=== PATIENT | female | born 1995 | race Caucasian/White ===

== ENCOUNTER 2020-06-21 07:00 | Outpatient (CLI) | payer OTHER | END 2020-06-21 23:59 | disposition home or self-care (01) | LOC: LAB.R 07:00 | PROVIDERS: ATTEND Nurse Practitioner Obstetrics & Gynecology | DX: Z36.85 Encounter for antenatal screening for Streptococcus B (principal) | CPT/HCPCS: 87797 ==

== ENCOUNTER 2020-06-28 08:59 | Outpatient (CLI) | payer OTHER ==
[2020-06-28 09:16] LABS: HGB - HEMOGLOBIN 10.6 g/dL (12.0-16.0); MEAN CORPUSCULAR HEMOGLOBIN 28.3 pg (27.0-31.0); MEAN CORPUSCULAR HGB CONC 32.6 g/dL (32.0-36.0); MEAN CORPUSCULAR VOLUME 86.7 fL (81.0-99.0); MEAN PLATELET VOLUME 9.7 fL (7.9-10.8); RED BLOOD COUNT 3.75 10^6/uL (4.20-5.40); RED CELL DISTRIBUTION WIDTH 13.4 % (12.0-15.0); WHITE BLOOD COUNT 11.4 x10^3/uL (4.8-10.8)
[2020-06-28 09:29] LABS: ALBUMIN 2.8 g/dL (3.2-5.5); ALBUMIN/GLOBULIN RATIO 0.7 (1.0-2.2); BILIRUBIN,TOTAL 0.4 mg/dL (0.2-1.0); CALCIUM 9.7 mg/dL (8.5-10.3); CREATININE 0.5 mg/dL (0.4-1.0); TOTAL PROTEIN 6.9 g/dL (6.7-8.2)
[2020-06-28 09:33] LABS: CREATININE,URINE 92.3 mg/dL; MICROALBUM/CREATININE RATIO,UR 8.7 ug/mg (<30.0); MICROALBUMIN,URINE 0.8 mg/dL (0-300.0)
== END 2020-06-28 09:00 | disposition home or self-care (01) ==
LOC: LAB 08:59
PROVIDERS: ATTEND Nurse Practitioner Obstetrics & Gynecology
DX: R03.0 Elevated blood-pressure reading, without diagnosis of hypertension (principal)
CPT/HCPCS: 36415; 80053; 82043; 82570; 84550; 85027

== ENCOUNTER 2020-06-28 14:00 | Observation (INO) | payer OTHER ==
[2020-06-28] MEDS ORDERED: SODIUM CHLORIDE FLUSH 0.9% 10 ML SYRINGE IVP PRN (14:12)
[2020-06-28] MEDS ORDERED: diphenhydrAMINE 25 MG CAPSULE PO PRN (15:36)
[2020-06-28] MEDS ORDERED: ACETAMINOPHEN 500 MG TABLET PO PRN (15:37)
[2020-06-28] MEDS ORDERED: ONDANSETRON 4 MG/2 ML VIAL IVP PRN (15:37)
[2020-06-28] MEDS ORDERED: ONDANSETRON ODT 4 MG TABLET TL PRN (15:37)
--- NOTE | 2020-06-28 15:38 | HISTORY & PHYSICAL EXAMINATION ---
Admit History - Visit Reason Visit Reason: Other (Pre-induction Cervical Ripening for complicated by Preeclampsia) - : 1 Parity: 0 Premature: 0 Ectopic: 0 : 0 Care: positive: LUX-Tien Garcia ([facility] after transfer from [facility] at) - Other Maternal History Other Maternal History: -25yo at 38.1wks gestation who presents to Labor and Delivery for pre- induction cervical ripening related to development of Preeclampsia as evidenced by out of range BPs in clinic and a positive urine protein/creatinine ratio -Reports movement -Denies ctx/VB/LOF - care with [facility] x2 visits after transfer of care from [facility] at 37.1wks where care has been adequate - Complications *Suspected LGA fetus (US 04/06/2020 showed EFW at 90%) *Maternal Obesity (BMI 44.9) *Elevated BPs without history of HTN -06/28/2020 Protein/Creatinine Ratio: 8.7 -Dating Criteria *11.1wk US c/w LMP -OB Hx *G1: current -Medications * vitamin-daily -Allergies *NKDA *Pineapple (critical) -Medical History *Hx Abnormal Pap Smear (see findings below) -Surgical History *Breast Lumpectomy (2009) *Otoplasty (2001) -Family History *Non contributory -Social History *Non contributory - Labs, Immunizations, and Findings *Initial U/S: @ 11.1wks c/w LMP dating. *O pos/Rubella immune *VZV: immune *Genetic testing: CF neg; serum integrated screen - negative *FAS: 02/22/2020 WNL with the exception of poor visualization of cardiac structures. Posterior placenta, no previa. 3VC. EFW 94th percentile. *02/24/2020 f/u heart - WNL. *04/06/2020 f/u growth, LGA fetus: EFW 1106, 90th%tile. ARISTEO 20cm. *Glucola: 86 *Influenza: 12/2019 *TDAP : 04/20/2020 *GBS negative *HSV: denies self and partner *Breast pump Rx has *MOD: Anticipate ; It's a BOY! - Stewart; Irwin; Epidural; *pp contraception: POPs to Nuvaring when appropriate *pap: 12/28/2019 LSIL-colposcopy without biopsy 01/18/2020; visually consistent with GRACIELA-1. Pt was given recommendation to repeat pap in 1 year. -SVE - deferred at this time -Vertex by BSUS -EFW by deepak'bryon: 8-8.5# -FHTs as above -Assessment *Restate STATUS *Requires cervical ripening * Heart Tones- Category I -Plan *Admit to OBS(until active labor, SROM, AROM, epidural, or pitocin) *Cervical ripening with Misoprostol *Monitoring- Continuous *Comfort measures available- position changes, whirlpool tub, fentanyl, and epidural per maternal preference *Diet/Activity- per maternal preference *Anticipate -Family History *Non contributory -Social History *Non contributory - Labs, Immunizations, and Findings *PN blurb goes here -SVE -Vertex by BSUS -EFW by fidelina -FHTs as above -Assessment *25yo at 38.1wks gestation who presents to Labor and Delivery for pre- induction cervical ripening related to development of Preeclampsia as evidenced by out of range BPs in clinic and a positive urine protein/creatinine ratio *Cabral Score *- requires cervical ripening * Heart Tones- Category I -Plan *Admit to OBS(until active labor, SROM, AROM, epidural, or pitocin) *COVID swab- per unit protocol- URGENT *Monitoring- Continuous *BPs Q1H if within normal range *CBC Q8H while in labor *Comfort measures available- position changes, whirlpool tub, fentanyl, and epidural per maternal preference *Diet/Activity- per maternal preference *Anticipate Review of Systems - Eyes Eyes: denies: Blurred vision, Spots in vision - Cardiovascular Cariovascular: denies: Chest pain, Edema - Respiratory Respiratory: denies: SOB at rest - Gastrointestinal Gastrointestinal: denies: Abdominal pain, Nausea, Vomiting - Neurological Neurological: denies: General weakness, Headache - All Other Systems All Other Systems: reports: Reviewed and negative Physical - Abdominal Exam Contraction Frequency (min/apart): None Uterine Resting Tone: positive: Soft - Monitoring Heart Rate Baseline: 125 Strip Review: positive: Category I (accels, no decels, moderate variability) - Presentation Presentation: positive: Vertex (by BSUS) - Vaginal Exam Membranes: positive: Membranes intact Plan for Labor - Plan For Labor I expect patient to be DC'd or transferred within 96 hours.: Yes
[2020-06-28] MEDS ORDERED: miSOPROStoL 100 MCG TABLET BC SCH (16:00)
[2020-06-28] MEDS ORDERED: SODIUM CHLORIDE FLUSH 0.9% 10 ML SYRINGE IVP SCH (17:00)
[2020-06-28 20:26] LABS: CREATININE,URINE 182.1 mg/dL; PROTEIN/CREATININE RATIO,URINE 0.1 (<=0.2)
--- NOTE | 2020-06-28 20:52 | DISCHARGE SUMMARY ---
Discharge Summary Admit Date: 06/28/20 Discharge Date: 06/28/20 Discharging Provider: Taylor Talavera CNM Condition at Discharge: Good Discharge Disposition: 01 Home, Self Care - DIAGNOSES Admission Diagnoses: 25yo at 38.1wks gestation who presents to Labor and Delivery for pre- induction cervical ripening related to development of Preeclampsia as evidenced by out of range BPs in clinic and a positive urine protein/creatinine ratio - Complications *Suspected LGA fetus (US 04/06/2020 showed EFW at 90%) *Maternal Obesity (BMI 44.9) *Elevated BPs without history of HTN - HPI History of Present Illness: Jessica presented for IOL for suspected preeclampsia as evidenced by elevated BPs in clinic and an outpatient out of range urine lab. BPs 110-130s/60s-70s Denies BERMUDEZ, visual changes No RUQ pain Mild dependent edema in bilateral feet, +1 DTRs +1 bilaterally/ negative for clonus Plts 391 Hct 32.5% AST 19/ ALT 12 Outpatient microalbumin/creatinine ratio 8.7 *This is a normal level and was interpreted as an out of range protein/creatinine ratio, which is the typical test collected to rule out preeclampsia Upon further inspection inpatient, a protein/creatinine ratio was collected and found to be 0.1, which is within normal range FHTs 130s, accels, no decels, moderate variability Misoprostol x1 given >4 hours prior Thorough discussion with patient and partner about labs, risks/benefits of discharge home versus continuing with induction, preeclampsia symptoms, and plan of care moving forward. They would like to discharge to home. Assessment: 25yo at 38.1wks gestation Preeclampsia labs are wnl BPs are wnl FHT Cat I Appropriate for discharge home. Diagnosis: Elevated BP without hypertension Plan: Discharge to home now BPs daily, call for out of range (140/90) Call for symptoms of preeclampsia Follow up in office for BP check on Follow up weekly for routine care. - PHYSICAL EXAM AT DISCHARGE General Appearance: positive: No acute distress Eyes Bilateral: positive: Normal inspection ENT: positive: ENT inspection nml Neck: positive: Nml inspection Respiratory: positive: Breath sounds nml Cardiovascular: positive: Regular rate & rhythm, No murmur Abdomen: positive: Non-tender (gravid) Skin: positive: Color nml, Warm, Dry Extremities: positive: Non-tender, Full ROM Neurologic/Psychiatric: positive: Oriented x3 Reflexes: Knee (R): 1+, Knee (L): 1+
--- NOTE | 2020-06-28 21:00 | Discharge Plan ---
Discharge Plan Problem Reviewed?: Yes Disposition: Home, Self Care Condition: Good Diet: Regular Activity Restrictions: No Restrictions Additional Instructions or Follow Up instructions: Take Blood Pressures daily and report to clinic any over 140s and 90s, any s/s of preeclampsia (including but not limited to headache, RUQ pain, or visual changes), report to triage for BPs over 160 and 100. Follow up for clinic BP check. Follow up for regular visits. No Smoking: If you smoke, Please STOP! Call for help. Follow-up with: Taylor Talavera ARNP [Provider Admit Priv/Credential] -
== END 2020-06-28 21:00 | disposition home or self-care (01) ==
LOC: WFO 14:00 → FBP 14:03 → WFO 14:11 → FBP 14:12
PROVIDERS: ADMIT Advanced Practice Midwife; ATTEND Advanced Practice Midwife
DX: O99.891 Other specified diseases and conditions complicating pregnancy (principal); R03.0 Elevated blood-pressure reading, without diagnosis of hypertension; O99.213 Obesity complicating pregnancy, third trimester; E66.9 Obesity, unspecified; Z3A.38 38 weeks gestation of pregnancy; Z20.828 Contact with and (suspected) exposure to other viral communicable diseases
CPT/HCPCS: 36415; 80053; 82043; 82570; 84156; 84550; 85027; 86850; 86900; 86901; 87635; A9270; G0378

== ENCOUNTER 2020-07-01 14:17 | Inpatient (IN) | payer OTHER ==
[2020-07-01] MEDS ORDERED: miSOPROStoL 200 MCG TABLET BC PRN (16:24)
[2020-07-01] MEDS ORDERED: CARBOPROST TROMETHAMINE 250 MCG/ML AMP IM PRN (16:24)
[2020-07-01] MEDS ORDERED: OXYTOCIN 10 UNIT/ML VIAL IM PRN (16:24)
[2020-07-01] MEDS ORDERED: ONDANSETRON ODT 4 MG TABLET TL PRN (16:24)
[2020-07-01] MEDS ORDERED: TRANEXAMIC ACID 1,000 MG in SODIUM CHLORIDE 0.9% 100ML 100 ML IV PRN (16:24)
[2020-07-01] MEDS ORDERED: METHYLERGONOVINE 0.2 MG/ML VIAL IM PRN (16:24)
[2020-07-01] MEDS ORDERED: LIDOCAINE-MPF 1% 30 ML VIAL ID PRN (16:24)
[2020-07-01] MEDS ORDERED: OXYTOCIN/SODIUM CHLORIDE 500 ML IV PRN (16:24)
--- NOTE | 2020-07-01 16:30 | HISTORY & PHYSICAL EXAMINATION ---
Admit History - Visit Reason Visit Reason: Other (pre-induction cervical ripening r/t GHTN) - : 1 Parity: 0 Premature: 0 Ectopic: 0 : 0 Care: positive: LUX-Myaidbey (transfer to [facility] at 37.1wks), Other ([facility]) Risk/History: positive: induced HTN Complications This : positive: None Smoking Status: Former smoker - Mother's Labs Mother's Blood Type: positive: O Mother's RH: positive: Positive GBS: positive: Group B Step Negative Rubella Status: positive: Immune - Other Maternal History Other Maternal History: -25yo at 38.4wks gestation who presents to Labor and Delivery for pre- induction cervical ripening related to development of gestational hypertension as evidenced by out of range BPs in clinic and at home (140s/90s) -Reports movement -Denies ctx/VB/LOF - care with [facility] x2 visits after transfer of care from [facility] at 37.1wks where care has been adequate - Complications *Suspected LGA fetus (US 04/06/2020 showed EFW at 90%) *Maternal Obesity (BMI 44.9) *Elevated BPs without history of HTN -Dating Criteria *11.1wk US c/w LMP -OB Hx *G1: current -Medications * vitamin-daily -Allergies *NKDA *Pineapple (critical) -Medical History *Hx Abnormal Pap Smear (see findings below) -Surgical History *Breast Lumpectomy (2009) *Otoplasty (2001) -Family History *Non contributory -Social History *Non contributory - Labs, Immunizations, and Findings *Initial U/S: @ 11.1wks c/w LMP dating. *O pos/Rubella immune *VZV: immune *Genetic testing: CF neg; serum integrated screen - negative *FAS: 02/22/2020 WNL with the exception of poor visualization of cardiac structures. Posterior placenta, no previa. 3VC. EFW 94th percentile. *02/24/2020 f/u heart - WNL. *04/06/2020 f/u growth, LGA fetus: EFW 1106, 90th%tile. ARISTEO 20cm. *Glucola: 86 *Influenza: 12/2019 *TDAP : 04/20/2020 *GBS negative *HSV: denies self and partner *Breast pump Rx has *MOD: Anticipate ; It's a BOY! - Stewart; Irwin; Epidural; *pp contraception: POPs to Nuvaring when appropriate *pap: 12/28/2019 LSIL-colposcopy without biopsy 01/18/2020; visually consistent with GRACIELA-1. Pt was given recommendation to repeat pap in 1 year. -SVE - deferred at this time -Vertex by fidelina -EFW by fidelina: 8-8.# -FHTs as above -Assessment *25yo at 38.4wks gestation who presents to Labor and Delivery for pre- induction cervical ripening related to development of gestational hypertension as evidenced by out of range BPs in clinic and at home *Requires cervical ripening * Heart Tones- Category I -Plan *Admit to OBS(until active labor, SROM, AROM, epidural, or pitocin) *COVID swab- per unit protocol- URGENT *Monitoring- Continuous *BPs Q1H if within normal range *Comfort measures available- position changes, whirlpool tub, fentanyl, and epidural per maternal preference *Diet/Activity- per maternal preference *Anticipate Meds/Allgy - Allergies Allergies/Adverse Reactions: Allergies Allergy/AdvReac Type Severity Reaction Status Date / Time pineapple Allergy Edema Verified 07/01/20 15:52 Review of Systems - All Other Systems All Other Systems: reports: Reviewed and negative Physical - Abdominal Exam Contraction Frequency (min/apart): none Uterine Resting Tone: positive: Soft - Monitoring Heart Rate Baseline: 145 Strip Review: positive: Category I (moderate variability, accels, no decels) - Presentation Presentation: positive: Vertex Plan for Labor - Plan For Labor I expect patient to be DC'd or transferred within 96 hours.: Yes
[2020-07-01 16:45] LABS: BASOPHILS % (AUTO) 0.2 %; EOSINOPHILS # (AUTO) 0.1 10^3/uL (0.0-0.7); EOSINOPHILS % (AUTO) 0.6 %; LYMPHOCYTES # (AUTO) 2.5 10^3/uL (1.5-3.5); LYMPHOCYTES % (AUTO) 19.9 %; MEAN CORPUSCULAR HEMOGLOBIN 27.8 pg (27.0-31.0); MEAN CORPUSCULAR HGB CONC 31.9 g/dL (32.0-36.0); MEAN CORPUSCULAR VOLUME 86.9 fL (81.0-99.0); MEAN PLATELET VOLUME 10.6 fL (7.9-10.8); MONOCYTES # (AUTO) 0.8 10^3/uL (0.0-1.0); MONOCYTES % (AUTO) 5.9 %; NEUTROPHILS # (AUTO) 9.1 10^3/uL (1.5-6.6); PLT - PLATELET COUNT 391 10^3/uL (130-450); RED CELL DISTRIBUTION WIDTH 13.6 % (12.0-15.0); WHITE BLOOD COUNT 12.7 x10^3/uL (4.8-10.8)
[2020-07-01] MEDS ORDERED: miSOPROStoL 100 MCG TABLET ONE (17:20)
[2020-07-01] MEDS: miSOPROStoL 100 MCG TABLET BC SCH (20:50)
[2020-07-01] MEDS: SODIUM CHLORIDE FLUSH 0.9% 10 ML SYRINGE IVP PRN (20:51)
--- NOTE | 2020-07-01 21:03 | CONSULTATION NOTE ---
Consultation Report: Called for placement of peripheral IV after multiple failed attempts and history of difficult start. US used to place 20ga 1.88" IV at R FA. attept x1. Aspirates and flushes, labs drawn. Secured with tegaderm and tape. Pt tolerated procedure without complaint.
[2020-07-01] MEDS: diphenhydrAMINE 25 MG CAPSULE PO PRN (23:10)
[2020-07-02] MEDS: diphenhydrAMINE 25 MG CAPSULE PO PRN (00:39)
[2020-07-02] MEDS: miSOPROStoL 100 MCG TABLET BC SCH ×6 (00:39→19:01)
[2020-07-02] MEDS: LACTATED RINGERS 1,000 ML IV SCH ×3 (07:27→19:01)
[2020-07-02] MEDS: SODIUM CHLORIDE FLUSH 0.9% 10 ML SYRINGE IVP SCH ×4 (07:27→19:02)
[2020-07-02] MEDS: fentaNYL 100 MCG/2 ML VIAL IVP PRN ×2 (15:44→19:02)
--- NOTE | 2020-07-02 19:41 | PROVIDER PROGRESS NOTE ---
Labor Progress Note - Uterine Monitoring Uterine Monitoring Mode: positive: External toco Contraction Frequency (min/apart): 1.5-6 Contraction Intensity: positive: Mild to moderate Uterine Resting Tone: positive: Soft - Monitoring Monitor Mode: positive: External ultrasound Heart Rate Baseline: 135 Heart Rate Variability: positive: Moderate (6-25 bmp) Accelerations: positive: Present, 15x15 Decelerations: positive: None Strip Review: positive: Category I - Vaginal Exam Dilation (in cm): 1 Effacement (%): 50 Station: -2 Cervical Position: Midposition - Labor Progress Note Labor Progress Note/Additional Text: S: Jessica is resting in bed. Her is supportive at bedside. She reports contractions as intermittent and mild. Denies LOF or VB. Denies BERMUDEZ, blurry vision, or abd pain O: SVE 1/50%/-2/mid/mod Hilliard balloon for cervical ripening placed (60mL uterine/15mL vaginal)- she could not tolerate further volume vaginally as her cervix was still too long, and was around the vaginal portion of the catheter. Otherwise, tolerated procedure well. A: 25yo at 38.5wks gestation Present for induction of labor secondary to new onset gestational hypertension BPs 130s/80s with one diastolic today of 90. FHT Cat I Cabral Score 5 P: *Balloon for cervical ripening- leave in for 12 hours or until out spontaneously (may start pitocin IV at that time if needed) *Intermittent monitoring while balloon in place, q2h while awake and q4h while asleep, until active *Admit to L&D when active, pitocin, epidural, or ROM *Comfort measures available- position changes, whirlpool tub, fentanyl, and epidural per maternal preference *Diet/Activity- per maternal preference *Anticipate
[2020-07-02] MEDS: ZOLPIDEM 5 MG TABLET PO PRN (20:28)
[2020-07-03] MEDS: SODIUM CHLORIDE FLUSH 0.9% 10 ML SYRINGE IVP SCH ×3 (01:40→14:08)
--- NOTE | 2020-07-03 09:08 | PROVIDER PROGRESS NOTE ---
Labor Progress Note - Uterine Monitoring Uterine Monitoring Mode: positive: External toco Contraction Frequency (min/apart): none Contraction Intensity: positive: Mild Uterine Resting Tone: positive: Soft - Monitoring Monitor Mode: positive: External ultrasound Accelerations: positive: Present, 15x15 Decelerations: positive: None Strip Review: positive: Category I - Vaginal Exam Dilation (in cm): 2 Effacement (%): 60 Station: -2 Cervical Position: Midposition - Labor Progress Note Labor Progress Note/Additional Text: S: Jessica is resting comfortably in bed. She reports some mild cramping and some bloody discharge overnight. Denies BERMUDEZ, blurry vision. Endorses movement. O: Hilliard bulb removed on vag exam without deflation SVE 2/60%/-2/mid/mod/intact (may stretch to three cm) A: 25yo at 38.6wks gestation Gestational Hypertension Cabral score- 5- cervical ripening required VSS FHT Cat I P: Start misoprostol 50mcg BC q4h for further cervical ripening Continuous monitoring Nourishment and movement to maternal preference May have position changes, whirlpool tub, fentanyl, or epidural per maternal preference Anticipate
[2020-07-03] MEDS: ONDANSETRON 4 MG/2 ML VIAL IVP PRN ×2 (09:41→14:09)
[2020-07-03] MEDS: miSOPROStoL 100 MCG TABLET BC SCH ×3 (10:02→18:12)
--- NOTE | 2020-07-03 18:36 | PROVIDER PROGRESS NOTE ---
Labor Progress Note - Uterine Monitoring Uterine Monitoring Mode: positive: External toco Contraction Frequency (min/apart): intermittent Contraction Intensity: positive: Mild to moderate - Monitoring Monitor Mode: positive: External ultrasound Heart Rate Baseline: 140 Heart Rate Variability: positive: Moderate (6-25 bmp) Accelerations: positive: Present, 15x15 Decelerations: positive: None Strip Review: positive: Category I - Vaginal Exam Dilation (in cm): 2 Effacement (%): 60 Station: -2 Cervical Position: Midposition - Labor Progress Note Labor Progress Note/Additional Text: S: Jessica is resting comfortably in bed. She has had some episodes of nausea with vomiting today, but has otherwise been tolerating her induction well. O: BP 120/72 HR 94 Uterus soft, nontender SVE 2/60/-2/mod/mid Miso Dose #3 given at 1800 A: 25yo at 38.6wks Cabral score: 5- unchanged- requires further cervical ripening FHT- Cat I Utx- not yet dann regularly BPs wnl with few borderline elevated without symptoms or severe BPs P: Rest patient overnight and restart attempts at cervical ripening in the morning -discussed plan of care with patient and spouse including risks/benefits, and options, all questions answered. AM labs- cbc, cmp, urine protein/creatinine ratio Monitor until 2200 (when miso is complete) and then again at 0600, if reassuring May have sleep aids Anticipate May nourish/ambulate to maternal preference
[2020-07-03] MEDS: ZOLPIDEM 5 MG TABLET PO PRN (23:14)
[2020-07-04 05:38] LABS: HGB - HEMOGLOBIN 9.8 g/dL (12.0-16.0); MEAN CORPUSCULAR HEMOGLOBIN 27.1 pg (27.0-31.0); MEAN CORPUSCULAR HGB CONC 31.5 g/dL (32.0-36.0); MEAN CORPUSCULAR VOLUME 85.9 fL (81.0-99.0); RED BLOOD COUNT 3.62 10^6/uL (4.20-5.40); RED CELL DISTRIBUTION WIDTH 13.9 % (12.0-15.0); WHITE BLOOD COUNT 12.1 x10^3/uL (4.8-10.8)
[2020-07-04 06:05] LABS: ALBUMIN 2.6 g/dL (3.2-5.5); ALBUMIN/GLOBULIN RATIO 0.7 (1.0-2.2); BILIRUBIN,TOTAL 0.5 mg/dL (0.2-1.0); CREATININE 0.5 mg/dL (0.4-1.0); TOTAL PROTEIN 6.5 g/dL (6.7-8.2)
[2020-07-04] MEDS: SODIUM CHLORIDE FLUSH 0.9% 10 ML SYRINGE IVP SCH ×3 (06:26→17:00)
[2020-07-04 07:05] LABS: CREATININE,URINE 120.1 mg/dL; PROTEIN/CREATININE RATIO,URINE 0.1 (<=0.2)
[2020-07-04] MEDS: fentaNYL 100 MCG/2 ML VIAL IVP PRN (07:57)
--- NOTE | 2020-07-04 08:22 | PROVIDER PROGRESS NOTE ---
Labor Progress Note - Uterine Monitoring Uterine Monitoring Mode: positive: External toco Contraction Frequency (min/apart): none Uterine Resting Tone: positive: Soft - Monitoring Monitor Mode: positive: External ultrasound Heart Rate Baseline: 130 Heart Rate Variability: positive: Moderate (6-25 bmp) Decelerations: positive: None Strip Review: positive: Category I - Vaginal Exam Dilation (in cm): 3-4 Effacement (%): 75 Station: -3 Cervical Position: Posterior - Labor Progress Note Labor Progress Note/Additional Text: S: Pt feeling well and states she slept well throughout the night last night. She was rested and did not receive medication for cervical ripening last night. She reports feeling extremely uncomfortable following placement of taylor cervical ripening balloon last time and is hoping before a second cervical ripening balloon she can be pre-medicated with fentanyl, as this worked well to manage her pain following placement. Mood is good and they are just hoping for the process to move forward. supportive at the bedside. She denies vaginal bleeding or leakage for fluid. Reports occasional contractions when she woke up this morning but nothing overly uncomfortable. Denies BERMUDEZ, visual disturbances, RUQ or epigastric pain. O: BP 121/73, HR 112, T 36.8, RR 18 PIH labs WNL FHR baseline 130s, moderate variability, + accels, no decels No contractions via tocometry and pt denies contractions. SVE 3-4/75/-3, posterior, soft. Vertex. Membranes intact Attempted placement of taylor cervical ripening balloon but secondary to soft cervix and advanced dilation the balloon was spontaneously expelled. A: 25yo @ 38.6wks gestation Gestational HTN-asymptomatic, mild range BPs on occasion Induction of labor secondary to gestational hypertension. S/p 6 doses of misoprostol and 1 taylor cervical ripening balloon which was removed after 12 hours. GBS neg P: Initiate pitocin for induction of labor with titration pre protocol Continuous monitoring Anesthesia notified for placement of early epidural - will notify when pt desires to initiate epidural use for pain management Repeat SVE in 4 hours or sooner PRN. Reviewed plan of care with pt, , and RN at the bedside who all verbalized understanding and agree with above plan. They deny further questions or concerns at this time.
[2020-07-04] MEDS: LACTATED RINGERS 1,000 ML IV SCH ×2 (08:45→18:31)
[2020-07-04] MEDS: OXYTOCIN/SODIUM CHLORIDE 500 ML IV SCH (08:48)
--- NOTE | 2020-07-04 08:53 | ANESTHESIA ---
Pre-Anesthesia VS, & Labs - Diagnosis Induction of labor - Procedure vaginal delivery Vital Signs: Temp Pulse Resp BP Pulse Ox 36.8 C 112 H 18 121/73 96 07/04/20 06:41 07/04/20 06:41 07/04/20 06:41 07/04/20 06:41 07/04/20 06:41 Height: 5 ft 4 in Weight (kg): 117.934 kg Body Mass Index: 44.6 BMI Classification: Morbidly Obese - NPO Other (NA) - Is Patient ?: Yes - Lab Results Current Lab Results: Laboratory Tests 07/04/20 05:29: Sodium 135, Potassium 3.8, Chloride 107, Carbon Dioxide 19 L, Anion Gap 9.0, BUN 8, Creatinine 0.5, Estimated GFR (MDRD) 148, Glucose 86, Calcium 9.0, Total Bilirubin 0.5, AST 16, ALT 11, Alkaline Phosphatase 151 H, Total Protein 6.5 L, Albumin 2.6 L, Globulin 3.9, Albumin/Globulin Ratio 0.7 L 07/04/20 05:29: WBC 12.1 H, RBC 3.62 L, Hgb 9.8 L, Hct 31.1 L, MCV 85.9, MCH 27.1, MCHC 31.5 L, RDW 13.9, Plt Count 358, MPV 10.0 07/01/20 16:15: WBC 12.7 H, RBC 3.60 L, Hgb 10.0 L, Hct 31.3 L, MCV 86.9, MCH 27.8, MCHC 31.9 L, RDW 13.6, Plt Count 391, MPV 10.6, Neut # (Auto) 9.1 H, Lymph # (Auto) 2.5, [place] # (Auto) 0.8, Eos # (Auto) 0.1, Baso # (Auto) 0.0, Absolute Nucleated RBC 0.00, Nucleated RBC % 0.0 07/01/20 16:15: Blood Type O POSITIVE, Antibody Screen NEGATIVE Fish Bones: 07/04/20 05:29 07/04/20 05:29 Home Medications and Allergies Active Medications Acetaminophen (Tylenol) 650 mg PO Q6H PRN PRN Reason: Pain or Fever Carboprost Tromethamine (Hemabate) 250 mcg IM Q15M PRN PRN Reason: Step 4: Hemorrhage protocol Stop: 07/06/20 16:24 Diphenhydramine HCl (Benadryl) 25 mg PO QPM PRN PRN Reason: Insomnia Last Admin: 07/02/20 00:39 Dose: 25 mg Documented by: Fentanyl (Fentanyl) 50 mcg IVP Q1H PRN PRN Reason: PAIN Last Admin: 07/04/20 07:57 Dose: 50 mcg Documented by: Oxytocin/Sodium Chloride (Pitocin/Sodium Chloride) 500 mls @ 999 mls/hr IV PRN PRN; Protocol PRN Reason: POST- HEMORR PREVENTION Stop: 07/06/20 16:24 Tranexamic Acid 1,000 mg/ (Sodium Chloride) 110 mls @ 660 mls/hr IV .ONCE PRN PRN Reason: EBL >1200mL and within 3hr Stop: 07/06/20 16:24 Lactated Ringer's (Lr) 1,000 mls @ 100 mls/hr IV .Q10H GORDO Last Admin: 07/04/20 08:45 Dose: 100 mls/hr Documented by: Oxytocin/Sodium Chloride (Pitocin/Sodium Chloride) 500 mls @ 1 mls/hr IV TITR GORDO; Protocol Last Admin: 07/04/20 08:48 Dose: 1 milliunit/min, 1 mls/hr Documented by: Lidocaine HCl (Xylocaine-Mpf 1% Vial) 30 ml ID .ONCE PRN PRN Reason: PERINEAL REPAIR Stop: 07/06/20 16:24 Methylergonovine Maleate (Methergine Inj) 0.2 mg IM .ONCE PRN PRN Reason: Step 2: Hemorrhage protocol Stop: 07/06/20 16:24 Misoprostol (Cytotec) 800 mcg BC .ONCE PRN PRN Reason: Step 3: Hemorrhage protocol Stop: 07/06/20 16:24 Misoprostol (Cytotec) 50 mcg BC Q4HR GORDO Last Admin: 07/03/20 18:12 Dose: 50 mcg Documented by: Ondansetron HCl (Zofran Inj) 4 mg IVP Q4HR PRN PRN Reason: Nausea / Vomiting Last Admin: 07/03/20 14:09 Dose: 4 mg Documented by: Ondansetron HCl (Zofran Odt) 4 mg TL Q4HR PRN PRN Reason: Nausea / Vomiting Oxytocin (Pitocin) 10 unit IM .ONCE PRN PRN Reason: Step one: If no IV access Stop: 07/06/20 16:24 Sodium Chloride (Normal Saline Flush 0.9%) 10 ml IVP 0100,0900,1700 GORDO Last Admin: 07/04/20 06:26 Dose: 10 ml Documented by: Sodium Chloride (Normal Saline Flush 0.9%) 10 ml IVP PRN PRN PRN Reason: NEEDED PER PROVIDER ORDERS Last Admin: 07/01/20 20:51 Dose: 10 ml Documented by: Zolpidem Tartrate (Ambien) 5 mg PO QPM PRN PRN Reason: Insomnia Last Admin: 07/03/20 23:14 Dose: 5 mg Documented by: PNV Allergies/Adverse Reactions: Allergies Allergy/AdvReac Type Severity Reaction Status Date / Time pineapple Allergy Edema Verified 07/01/20 15:52 Anes History & Medical History - Anesthetic History Anesthesia Complications: reports: No previous complications - Medical History Cardiovascular: reports: None Pulmonary: reports: None Gastrointestinal: reports: GERD (during ) Urinary: reports: None Neuro: reports: None Musculoskeletal: reports: None, Scoliosis (mild as a child) Endocrine/Autoimmune: reports: None Blood Disorders: reports: None Skin: reports: None Smoking Status: Former smoker Psychosocial: reports: No issues indicated History of Cancer?: No - Surgical History Gynecologic: Other (breast lumpectomy) - Obstetrical History : 1 Parity: 0 Events: positive: induced HTN Complications: positive: None Exam General: Alert, Oriented x3, Cooperative, No acute distress Dental: WNL Mouth Openin Fingerbreadth Neck Mobility: Normal Mallampati classification: II Thyromental Distance: 4-6 cm Mental/Cognitive Status: Alert/Oriented X3, Normal for patient Plan Anesthesia Type: Epidural Consent for Procedure(s) Verified and Reviewed: Yes Code Status: Attempt Resuscitation ASA classification: 2-Mild systemic disease Is this case an emergency?: No
[2020-07-04] MEDS ORDERED: NALOXONE 0.4 MG/ML VIAL IVP PRN (13:27)
[2020-07-04] MEDS ORDERED: ROPIVACAINE 0.2% 200 MG/100 ML BAG EP PRN (13:27)
[2020-07-04] MEDS ORDERED: ONDANSETRON 4 MG/2 ML VIAL IVP PRN (13:27)
[2020-07-04] MEDS ORDERED: diphenhydrAMINE INJ 50 MG/ML VIAL IVP PRN (13:27)
[2020-07-04] MEDS ORDERED: NALBUPHINE 10 MG/ML AMP IVP PRN (13:27)
[2020-07-04] MEDS ORDERED: ePHEDrine 50 MG/ML VIAL IVP PRN (13:32)
--- NOTE | 2020-07-04 14:25 | PROVIDER PROGRESS NOTE ---
Labor Progress Note - Uterine Monitoring Contraction Frequency (min/apart): occasional Contraction Intensity: positive: Mild Uterine Resting Tone: positive: Soft - Monitoring Monitor Mode: positive: External ultrasound Heart Rate Baseline: 130 Heart Rate Variability: positive: Moderate (6-25 bmp) Accelerations: positive: Present, 15x15 Decelerations: positive: None Strip Review: positive: Category I - Labor Progress Note Labor Progress Note/Additional Text: S: Sitting up in the chair at the bedside. Feeling well. She reports rare contractions but reports routinely she feels only occasional menstrual like cramping. She denies VB or Lof and reports +FM. supportive at the bedside. O: BP 127/87 - asymptomatic Pitocin @ 10mU/mL FHR baseline 130s, moderate variability, + accels, no decels Occasional contractions palpate mild with soft resting tone. SVE deferred. Membranes intact A: 25yo @ 38.6wks gestation Gestational HTN Induction of labor secondary to gestational HTN GBS negative P: Continue induction of labor with pitocin with titration per protocol Continuous monitoring Encouraged ambulation and position changes Maintain epidural access with initiation of epidural anesthesia for pain lilly dang per maternal request Reviewed continued plan of care with pt, and RN at the bedside who verbalized understanding and agree to above plan. They deny further questions or concerns at this time.
--- NOTE | 2020-07-04 19:51 | PROVIDER PROGRESS NOTE ---
Labor Progress Note - Uterine Monitoring Uterine Monitoring Mode: positive: External toco Contraction Frequency (min/apart): occasional Contraction Intensity: positive: Mild Uterine Resting Tone: positive: Soft - Monitoring Monitor Mode: positive: External ultrasound Heart Rate Baseline: 135 Heart Rate Variability: positive: Moderate (6-25 bmp) Accelerations: positive: Present, 15x15 Decelerations: positive: None Strip Review: positive: Category I - Vaginal Exam Dilation (in cm): 3-4 Effacement (%): 75 Station: -3 Cervical Position: Posterior - Labor Progress Note Labor Progress Note/Additional Text: S: Feeling some tightening in her abdomen intermittently but states they really are not uncomfortable and she is rating them 1/10 on a pain scale. We discussed shutting off her Pitocin at 20mU/mL if we reach that dosage and monitoring x 4 hours then release her home to monitor BPs at home and return for IOL 48 hours later and pt declines. She states she really does not want to leave without a baby and is accepting of a delivery if we get to that point. She denies BERMUDEZ, visual disturbances, RUQ or epigastric pain. She reports feeling some discomfort in her back at site of epidural placement. She requests ambien to sleep tonight if pitocin is shut off and states this has helped her sleep that past 2 nights. Her mood is good and her is supportive at the bedside. O: BP 142/77. DTRs 2+, no clonus. Heart RRR w/o M/G/R, lungs CTAB. Abdomen gravid, soft, no ntender. EFW 3800g - Fundal height measuring 40 at 38.1wks gestation however pt body habitus is considered. SVE unchanged from last check (/-3, posterior, soft. Vertex) Membranes intact Contractions palpate mild and occur only occasionally. Soft resting tone. FHR baseline 135, moderate variability, + accels, no decels Pitocin @ 15mU/mL currently A: 25yo @ 39.6wks gestation Gestational HTN IOL secondary to gestational HTN GBS negative Obesity P: Type and Cross x 2 units secondary to maternal obesity, gestational HTN, and prolonged induction of labor. Continuous monitoring Continue pitocin with titration per protocol. If reach 20mU/mL will leave x 1 hour and if regular contraction pattern is not achieved, will d/c pitocin for the night and resume in the morning. Discussed discharge home with pt and who really do not want to entertain the idea as an option for them. Reviewed increased risk for delivery with prolonged induction of labor and they report they are accepting of this as well as increased risk associated with delivery. Reviewed plan of care with case resolution specialist physician who agrees with above plan. Reviewed plan of care with pt, , RN at the bedside who are in agreement with above plan and deny further questions or concerns at this time.
[2020-07-04] MEDS: ZOLPIDEM 5 MG TABLET PO PRN (22:57)
[2020-07-05] MEDS: miSOPROStoL 100 MCG TABLET BC SCH ×9 (07:25→09:28)
[2020-07-05] MEDS: LACTATED RINGERS 1,000 ML IV SCH ×5 (07:26→15:56)
[2020-07-05] MEDS: SODIUM CHLORIDE FLUSH 0.9% 10 ML SYRINGE IVP SCH ×2 (07:35→09:28)
--- NOTE | 2020-07-05 08:47 | PROVIDER PROGRESS NOTE ---
Labor Progress Note - Uterine Monitoring Uterine Monitoring Mode: positive: External toco Contraction Frequency (min/apart): occasional Contraction Intensity: positive: Mild Uterine Resting Tone: positive: Soft - Monitoring Monitor Mode: positive: External ultrasound Heart Rate Baseline: 140 Heart Rate Variability: positive: Moderate (6-25 bmp) Accelerations: positive: Present, 15x15 Decelerations: positive: None Strip Review: positive: Category I - Labor Progress Note Labor Progress Note/Additional Text: S: Pt states she was able to sleep well throughout the night after taking ambien. She is thankful for the night's rest. She denies VB, Lof, or contractions. Reports intermittent menstrual-like cramping but nothing overly uncomfortable. Her mood is good. supportive at the bedside. We discussed again the option of going home and they decline. She would like to proceed with initiating pitocin for IOL again and is accepting of a delivery if IOL fails. She reports understanding of associated risks. She denies BERMUDEZ, visual disturbances, RUQ or epigastric pain. O: Heart RRR w/o M/G/R, lungs CTAB, DTRs 2+, no clonus. FHR baseline 140s, moderate variability, + accels, no decels Contractions palpate mild occasionally. SVE deferred at this time A: 25yo @ 39.0wks gestation Gestational HTN Medical IOL secondary to gestational HTN Obesity FHR Category I GBS negative P: Reviewed options for further management with pt and at the bedside. Discussed discharge home with BP monitoring and precautions to return x 48 hours and pt declines. Discussed initiating pitocin with titration per protocol as well as AROM and placement of IUPC in 3 hours and pt accepts this option. Discussed threat of failed induction of labor and proceeding with delivery if she does not progress to labor. Reviewed increased risk of hemorrhage secondary to maternal obesity and prolonged induction of labor. Pt has been typed and crossed with 2 units ready. Continuous monitoring. Encouraged ambulation and position changes. Pt has epidural catheter without infusion currently in place. Reviewed plan of care with pt, , and RN at the bedside who are in agreement with above plan and deny further questions or concerns at this time.
[2020-07-05] MEDS: OXYTOCIN/SODIUM CHLORIDE 500 ML IV SCH (09:24)
--- NOTE | 2020-07-05 13:01 | PROVIDER PROGRESS NOTE ---
Labor Progress Note - Uterine Monitoring Uterine Monitoring Mode: positive: External toco Contraction Frequency (min/apart): occasional Contraction Intensity: positive: Mild Uterine Resting Tone: positive: Soft - Monitoring Monitor Mode: positive: External ultrasound Heart Rate Baseline: 130 Heart Rate Variability: positive: Moderate (6-25 bmp) Accelerations: positive: Present, 15x15 Decelerations: positive: None Strip Review: positive: Category I - Vaginal Exam Dilation (in cm): 3 Effacement (%): 50 Station: -3 Cervical Position: Posterior - Labor Progress Note Labor Progress Note/Additional Text: S: Feeling well overall. Mood is good. Denies contractions and states even the menstrual-like cramping has resolved. Reports +FM. O: FHR baseline 130, moderate variability, + accels, no decels Contractions palpate mild only occasionally and pt does not appreciate contractions SVE unchanged from last check (50/-3, posterior, soft. Vertex) AROM moderate amount of clear fluid IUPC placed BP 137/82 Pitocin @ 10mU/mL A: 25yo @ 39.0wks gestation Gestational HTN Induction of labor secondary to gestational HTN Obesity FHR Category I P: Continue pitocin induction of labor with titration per protocol Continuous monitoring Discussed ROM x 4 hours with continued pitocin titration and if pt not moving towards active labor pattern we discussed proceeding with primary delivery which pt and are both in agreement with. Pt is type and cross matched with 2 units held back and ready. Repeat PIH labs ordered Reviewed pt clinical status and plan of care with section gang physician who is in agreement with above plan. Request 2nd large bore IV catheter placement if proceed with delivery. Encouraged ambulation and position changes. Discussed clinical status with anesthesia provider who reports she will likely remove epidural catheter and proceed with spinal anesthesia if we proceed with delivery secondary to catheter being in place x 2 days - reviewed with pt who verbalized understanding. Reviewed plan of care with pt, , and labor RN at the bedside who are all in agreement with above plan and deny further questions or concerns at this time. Reevaluate in 4 hours or sooner PRN.
[2020-07-05 13:35] LABS: HGB - HEMOGLOBIN 9.5 g/dL (12.0-16.0); MEAN CORPUSCULAR HEMOGLOBIN 27.1 pg (27.0-31.0); MEAN CORPUSCULAR HGB CONC 31.7 g/dL (32.0-36.0); MEAN CORPUSCULAR VOLUME 85.7 fL (81.0-99.0); MEAN PLATELET VOLUME 10.5 fL (7.9-10.8); RED BLOOD COUNT 3.5 10^6/uL (4.20-5.40); RED CELL DISTRIBUTION WIDTH 13.9 % (12.0-15.0); WHITE BLOOD COUNT 10.8 x10^3/uL (4.8-10.8)
[2020-07-05 13:45] LABS: ALBUMIN 2.5 g/dL (3.2-5.5); ALBUMIN/GLOBULIN RATIO 0.6 (1.0-2.2); BILIRUBIN,TOTAL 0.4 mg/dL (0.2-1.0); CREATININE 0.7 mg/dL (0.4-1.0); TOTAL PROTEIN 6.5 g/dL (6.7-8.2); URIC ACID 5.8 mg/dL (2.6-7.2)
[2020-07-05] MEDS ORDERED: ROPIVACAINE 0.2% 200 MG/100 ML BAG EP ONE (16:30)
[2020-07-05] MEDS ORDERED: LIDOCAINE 1%-EPI 1:100000 30 ML MDV ONE (16:30)
[2020-07-05] MEDS ORDERED: LIDOCAINE-PF 2% 10 ML AMP SUBQ ONE ×2 (16:31→17:01)
--- NOTE | 2020-07-05 16:41 | PROVIDER PROGRESS NOTE ---
Labor Progress Note - Uterine Monitoring Uterine Monitoring Mode: positive: IUPC Contraction Frequency (min/apart): 2-5 Contraction Intensity: positive: Moderate Uterine Resting Tone: positive: Soft - Monitoring Monitor Mode: positive: External ultrasound Heart Rate Baseline: 130 Heart Rate Variability: positive: Moderate (6-25 bmp) Accelerations: positive: Present, 15x15 Decelerations: positive: None Strip Review: positive: Category I - Vaginal Exam Dilation (in cm): 4 Effacement (%): 75 Station: -3 Cervical Position: Posterior - Labor Progress Note Labor Progress Note/Additional Text: S: Feeling increased discomfort with contractions and now having to breathe through them. She rates her pain 7/10 on a pain scale and requests epidural for pain management at this time. supportive at the bedside. O: FHR baseline 130, moderate variability, + accels, no decels Contractions palpate moderate q 2-5 minutes with soft resting tone. IUPC in place - MVU = 215 Pitocin @ 20mU/mL SVE 4/75/-3, posterior. SROM x 4 hours BP 151/91 A: 25yo @ 39.0wks gestation Gestational HTN Induction of labor secondary to gestational HTN FHR Category I Contractions - adequate; early labor Obesity P: Maintain pitocin at 20mU/mL Continuous monitoring Anesthesia notified for dosing patient's epidural Will rotate in bed on peanut ball Reviewed patient status and plan of care with crack off person physician who is in agreement with above plan. Requested physician presence at time of delivery secondary to concern for elevated risk for pp hemorrhage related to maternal obesity and prolonged induction of labor. Place second IV catheter. Repeat SVE in 4 hours or sooner PRN. Reviewed plan of care with pt, and labor RN at the bedside who verbalize understanding and agree with above plan. Denies further questions or concerns at this time.
[2020-07-05] MEDS ORDERED: ROPIVACAINE 0.2% 200 MG/100 ML BAG EP PRN (18:58)
[2020-07-05] MEDS: CALCIUM CARBONATE CHEW 500 MG TABLET PO SCH (20:14)
--- NOTE | 2020-07-05 20:59 | PROVIDER PROGRESS NOTE ---
Labor Progress Note - Uterine Monitoring Uterine Monitoring Mode: positive: IUPC Contraction Frequency (min/apart): 2-4 Contraction Intensity: positive: Moderate Uterine Resting Tone: positive: Soft - Monitoring Monitor Mode: positive: External ultrasound Heart Rate Baseline: 130 Heart Rate Variability: positive: Moderate (6-25 bmp) Accelerations: positive: Present, 15x15 Decelerations: positive: None Strip Review: positive: Category I - Vaginal Exam Dilation (in cm): 6 Effacement (%): 90 Station: -1 Cervical Position: Posterior - Labor Progress Note Labor Progress Note/Additional Text: S: Feeling comfortable with her epidural at this time. She is feeling itching from the epidural and requesting something for management of her itching. Requested TUMS for heartburn and reports heartburn has resolved. She denies BERMUDEZ, visual disturbances, RUQ or epigastric pain. Overall mood is good. supportive at the bedside. O: FHR baseline 130s, moderate variability, + accels, no decels Contractions palpate moderate every 2-4 minutes with soft resting tone. IUPC in place - MVUs persistently 180s Pitocin at 20mU/mL SVE 6/90/-1. Vertex. BP 131/80. T 98.2F AROM x 8 hours A: 25yo @ 39.0wks gestation Gestational HTN IOL secondary to Gestational HTN FHR Category I Obesity Prolonged induction of labor GBS negative P: Continue induction of labor with pitocin maintained at 20mU/mL and monitoring contractions via IUPC. Continuos monitoring Maintain epidural anesthesia for pain management. Maintain 2 large bore IV access. Type and cross match with 2 units held - ready. Will have electronic installer physician present at time of delivery secondary to concern for hemorrhage. Will ensure all uterotonics are at the bedside for delivery and reviewed increased risk of hemorrhage with nursing staff who verbalized understanding. Reviewed plan of care with electronic installer physician who is in agreement with above plan. Reviewed plan of care with pt and at the bedside who both verbalized understanding and agree to above plan. They deny further questions or concerns at this time.
[2020-07-05] MEDS: ONDANSETRON 4 MG/2 ML VIAL IVP PRN (23:28)
[2020-07-06] MEDS: LACTATED RINGERS 1,000 ML IV SCH ×2 (01:33→12:53)
--- NOTE | 2020-07-06 02:58 | PROVIDER PROGRESS NOTE ---
Labor Progress Note - Uterine Monitoring Uterine Monitoring Mode: positive: IUPC Contraction Frequency (min/apart): 2-3 Contraction Intensity: positive: Strong Uterine Resting Tone: positive: Soft - Monitoring Monitor Mode: positive: External ultrasound Heart Rate Baseline: 140 Heart Rate Variability: positive: Moderate (6-25 bmp) Accelerations: positive: Present, 15x15 Decelerations: positive: None Strip Review: positive: Category I - Vaginal Exam Dilation (in cm): 9 Effacement (%): 100 Station: 0 - Labor Progress Note Labor Progress Note/Additional Text: S: Feeling comfortable with epidural. Was on the right side for some time and then began to feel discomfort on her left side. She is now left lateral with peanut ball and feeling much better. She states she has been able to get some rest. sleeping at the bedside. Mood remains good. O: FHR baseline 140s, moderate variability, + accels, no decels Contractions palpate moderate-strong every 2-4 minutes with soft resting tone. MVUs- 120s SVE 9 with more cervix on left side/100/0. Vertex. Pitocin @ 20mU/mL A: 25yo @ 39.1wks gestation Gestational HTN - IOL secondarily Prolonged IOL Obesity FHR Category I GBS neg P: Continue pitocin at 20mU/mL Continuous monitoring Encouraged left lateral tilt to promote complete dilation of cervix. Plan to labor down x 1 hour once complete to reduce second stage secondary to concern for pp hemorrhage. Will notify Dr. Childs with impending delivery to be present at the bedside secondary to concern for pp hemorrhage. Anticipate .
[2020-07-06] MEDS: CALCIUM CARBONATE CHEW 500 MG TABLET PO SCH ×2 (05:25→12:53)
[2020-07-06] MEDS: FAMOTIDINE 20 MG/2 ML VIAL IVP SCH ×2 (05:44→12:53)
[2020-07-06] MEDS: ONDANSETRON 4 MG/2 ML VIAL IVP PRN (06:32)
[2020-07-06] MEDS ORDERED: miSOPROStoL 200 MCG TABLET ONE (07:52)
[2020-07-06] MEDS ORDERED: METHYLERGONOVINE 0.2 MG/ML VIAL ONE (07:52)
[2020-07-06] MEDS ORDERED: CARBOPROST TROMETHAMINE 250 MCG/ML AMP IM ONE (07:52)
[2020-07-06] MEDS ORDERED: WITCH HAZEL/GLYCERIN 1 PAD TOP PRN (08:22)
[2020-07-06] MEDS ORDERED: HYDROCORTISONE 1% CREAM 28 GM TUBE PR PRN (08:22)
--- NOTE | 2020-07-06 08:56 | PROVIDER PROGRESS NOTE ---
Subjective - Subjective Subjective: Labor: This 25yo @ 39.1wks gestation by LMP c/w 11.1wk U/S presented to [facility] for medical induction of labor secondary to gestational HTN at 38.4wks gestation. She persistently denied BERMUDEZ, visual disturbances, RUQ or epigastric pain. Her DTRs remained 2+ with no clonus. Her PIH labs remained WNL. BPs routinely WNL throughout labor process with occasional elevated BPs in the mo derate range. Pt did not have any severe range blood pressures. Upon arrival cervix was 1/50/-2, midposition and vertex. Patient received 6 total doses of 50mcg BC misoprostol as well as cervical ripening balloon in place x 12 hours. Patient progressed to 3-4/75/-3, posterior, soft. Attempted placement of second taylor cervical ripening balloon but secondary to soft cervix and advanced dilation the balloon was spontaneously expelled immediately following placement. Secondary to maternal obesity, gestational HTN, and prolonged induction of labor, patient was typed and cross matched for 2 units. field ring assembler physician was kept updated on patient clinical status and plan of care and presence requested at time of delivery secondary to concern for hemorrhage. Pitocin was initiated with titration per protocol and reached 20mU/mL. It was maintained at 20mU/mL x 1 hour and secondary to absence of uterine contractions the pitocin was d/c x 8 hours. Pt declined discharge home with precautions and return 48hours later and elects to proceed with induction of labor. Pitocin was then started again the next morning with titration per protocol and reached 10mU/mL with no presence of uterine contractions. AROM occurred at 1232 and was noted to be a moderate amount of clear fluid. IUPC placed at at that time. FHR maintained Category I pattern throughout labor. Pitocin titrated per protocol to 20mU/mL and maintained - MVUs persistently 140s-180s with intermittent periods of 120s. Progressive cervical change maintained. Patient progressed to complete dilatation and effacement at 0415 with onset of pushing at 0420. Secondary to lack of decent, pitocin titrated to 24mU/mL. field ring assembler physician notified following 2 hours of active pushing effort and presence requested at the bedside for evaluation and collaboration with continued plan of care. Following 3.5 hours of active maternal pushing effort and maximum pitocin infusion rate of 26mU/mL, care was handed off to rn admission physician Dr. Childs for further management. (see Physician delivery note to follow) Objective - Vital Signs/Intake & Output Vital Signs: Vital Signs x48h Temp Pulse Resp Pulse Ox 07/06/20 00:44 37.5 C 104 H 18 99 Intake & Output: Intake & Output 07/03/20 07/04/20 07/05/20 07/06/20 23:59 23:59 23:59 23:59 Intake Total 5354.801 6034 1111.667 Output Total 1 1400 Balance -1 1005.982 7939 -288.333 - Lab Results Fish Bones: 07/05/20 13:25 07/05/20 13:25 Other Labs: Lab Results x24hrs 07/05/20 07/05/20 Range/Units 13:25 13:25 WBC 10.8 (4.8-10.8) x10^3/uL RBC 3.50 L (4.20-5.40) 10^6/uL Hgb 9.5 L (12.0-16.0) g/dL Hct 30.0 L (37.0-47.0) % MCV 85.7 (81.0-99.0) fL MCH 27.1 (27.0-31.0) pg MCHC 31.7 L (32.0-36.0) g/dL RDW 13.9 (12.0-15.0) % Plt Count 352 (130-450) 10^3/uL MPV 10.5 (7.9-10.8) fL Sodium 135 (135-145) mmol/L Potassium 4.0 (3.5-5.0) mmol/L Chloride 105 (101-111) mmol/L Carbon Dioxide 20 L (21-32) mmol/L Anion Gap 10.0 (6-13) BUN 10 (6-20) mg/dL Creatinine 0.7 (0.4-1.0) mg/dL Estimated GFR (MDRD) 100 (>89) Glucose 86 (70-100) mg/dL Uric Acid 5.8 (2.6-7.2) mg/dL Calcium 9.0 (8.5-10.3) mg/dL Total Bilirubin 0.4 (0.2-1.0) mg/dL AST 18 (10-42) IU/L ALT 12 (10-60) IU/L Alkaline Phosphatase 152 H (42-121) IU/L Total Protein 6.5 L (6.7-8.2) g/dL Albumin 2.5 L (3.2-5.5) g/dL Globulin 4.0 (2.1-4.2) g/dL Albumin/Globulin Ratio 0.6 L (1.0-2.2)
[2020-07-06] MEDS: miSOPROStoL 100 MCG TABLET BC SCH (09:05)
--- NOTE | 2020-07-06 09:11 | DELIVERY NOTE ---
Delivery Note - Labor Labor: positive: Augmented by oxytocin, Other (Misoprostal) - Delivery Method Delivery Method: positive: Vacuum assist - Cervical Ripening Method Cervical Ripening Method: positive: Balloon device, Misoprostil (times 6 daoes), Oxytocin - Presentation Presentation: positive: VENUS - left occiput anterior - Nuchal Cord Nuchal Cord: positive: None - Anesthetic Anesthetic Type: - Amniotic Fluid Description Amniotic Fluid Description: positive: Clear - Vacuum Use Indication for Vacuum Use: positive: Shortening of 2nd stage for maternal benefit Type of Vacuum Cup: positive: Cup: Mushroom Type, Cup: Rigid Vacuum Extraction: positive: Successful (Pulled with 2 contractions) - Laceration Laceration: positive: Labial (bilateral small) - Delivery Outcome Delivery Outcome: positive: Livebirth - : positive: Placed in direct skin contact with mother, Bulb syringe, Stimulated, [place] used [place] sex: positive: Male (Apgars 8/9) - Placenta Placenta: positive: Intact, Spontaneous - Estimated Blood Loss Estimated Blood Loss (in cc): 200 - Post Delivery Events Post Delivery Events: positive: No post delivery events - Delivery Comments (Free Text/Narrative) Delivery Comments (Free Text/Narrative): AROM at 1232. clear fluid. IUPC placed adn MVU at 210. Continued to progress. reactive FMS. reached completat at 0415. Started pushing at 0420. Called in to evaluate pt at complete and +2. Pt was pushing well. Pt showed signs of ex haustion. Discussed with Pt vacuum risks and benefits. reviewed shoulder dystocia. vacuum applied at +3 pulled with 2 contractions. head delivered Essence maneuvers applied and shoulder followed 40sceonds later. baby delivered at 0805. Short cord noted. Baby placed on maternal abdomen. Pitocin started and given Hemabate 250 IM. Placenta followed at 0811 intact. minimal labial lacerations. EBL 200 ml.
[2020-07-06] MEDS: ACETAMINOPHEN 325 MG TABLET PO PRN ×2 (09:19→17:18)
[2020-07-06] MEDS: oxyCODONE 5 MG TABLET PO PRN ×2 (09:19→13:16)
[2020-07-06 09:24] LABS: CREATININE,URINE 120.3 mg/dL; PROTEIN/CREATININE RATIO,URINE 0.4 (<=0.2)
[2020-07-06] MEDS: SODIUM CHLORIDE FLUSH 0.9% 10 ML SYRINGE IVP SCH ×3 (11:19→12:53)
--- NOTE | 2020-07-06 13:57 | PROVIDER PROGRESS NOTE ---
Subjective - Subjective Subjective: BP 141/68. Denies BERMUDEZ, visual disturbances, RUQ or epigastric pain. Protein/creatinine ratio collected via straight catheter and returns 0.4 Repeat PIH labs ordered Objective - Vital Signs/Intake & Output Vital Signs: Vital Signs x48h Temp Pulse Resp BP Pulse Ox 07/06/20 13:27 36.4 C L 90 16 141/68 H 98 Intake & Output: Intake & Output 07/03/20 07/04/20 07/05/20 07/06/20 23:59 23:59 23:59 23:59 Intake Total 1768.956 0214 2588.267 Output Total 1999 Balance -1 2398.056 2488 588.267 - Lab Results Fish Bones: 07/05/20 13:25 07/05/20 13:25 Other Labs: Lab Results x24hrs 07/06/20 Range/Units 08:50 Urine Creatinine 120.3 mg/dL Ur Total Protein Timed 53 mg/dL Protein/Creatinin Ratio 0.4 H (<=0.2)
[2020-07-06 15:01] LABS: BASOPHILS % (AUTO) 0.3 %; EOSINOPHILS % (AUTO) 0.1 %; HGB - HEMOGLOBIN 9.5 g/dL (12.0-16.0); LYMPHOCYTES % (AUTO) 6.9 %; MEAN CORPUSCULAR HEMOGLOBIN 26.8 pg (27.0-31.0); MEAN CORPUSCULAR HGB CONC 31.7 g/dL (32.0-36.0); MEAN CORPUSCULAR VOLUME 84.7 fL (81.0-99.0); MEAN PLATELET VOLUME 10.5 fL (7.9-10.8); MONOCYTES % (AUTO) 5.6 %; NEUTROPHILS % (AUTO) 85.8 %; PLT - PLATELET COUNT 366 10^3/uL (130-450); RED BLOOD COUNT 3.54 10^6/uL (4.20-5.40)
[2020-07-06 15:06] LABS: ALBUMIN 2.5 g/dL (3.2-5.5); ALBUMIN/GLOBULIN RATIO 0.7 (1.0-2.2); BILIRUBIN,TOTAL 0.4 mg/dL (0.2-1.0); CALCIUM 9.2 mg/dL (8.5-10.3); CREATININE 0.7 mg/dL (0.4-1.0); TOTAL PROTEIN 6.2 g/dL (6.7-8.2)
[2020-07-06 15:20] LABS: ABNORMAL LYMPHS % (MANUAL) 0 %
[2020-07-06 17:26] LABS: BAND NEUTROPHILS % (MANUAL) 2 %; LYMPHOCYTES % (MANUAL) 8 %; MONOCYTES # (MANUAL) 0.8 10^3/uL (0.0-1.0)
[2020-07-06 17:28] LABS: PLATELET ESTIMATE, MANUAL NORMAL (130-450,000) (NORMAL)
[2020-07-06 17:29] LABS: DIFFERENTIAL COMMENT MANUAL DIFFERENTIAL; PLATELET MORPHOLOGY NORMAL APP (NORMAL); RBC MORPHOLOGY (MULTIPLE) 1+ POLYCHR (NORMAL)
[2020-07-07] MEDS: ACETAMINOPHEN 325 MG TABLET PO PRN ×2 (00:07→06:08)
[2020-07-07] MEDS: SODIUM CHLORIDE FLUSH 0.9% 10 ML SYRINGE IVP PRN (06:08)
--- NOTE | 2020-07-07 07:53 | PROVIDER PROGRESS NOTE ---
Subjective - Prog Note Date Prog Note Date: 07/07/20 Prog Note Time: 07:51 - Subjective Pt reports feeling: Improved (Pain 1/10 with voiding, breast feeding, No Head ach wants to go home.) Objective - Vital Signs/Intake & Output Reviewed Vital Signs: Yes Vital Signs: Vital Signs x48h Temp Pulse Resp BP Pulse Ox 07/07/20 06:15 37.1 C 79 16 116/72 98 07/07/20 02:00 36.8 C 96 18 127/73 99 Intake & Output: Intake & Output 07/04/20 07/05/20 07/06/20 07/07/20 23:59 23:59 23:59 23:59 Intake Total 4906.912 1487 2588.267 400 Output Total 2000 Balance 7204.583 9146 588.267 400 - Objective General Appearance: positive: No acute distress Respiratory: positive: Chest non-tender, No respiratory distress, Breath sounds nml Cardiovascular: positive: Regular rate & rhythm, No murmur, No gallop Abdomen: positive: Non-tender, No organomegaly, Nml bowel sounds, No distention, Mass (U-3) Extremities: negative: Calf tenderness, Fabby's sign/cords - Lab Results Fish Bones: 07/06/20 14:47 07/06/20 14:47 Other Labs: Lab Results x24hrs 07/06/20 07/06/20 07/06/20 Range/Units 14:47 14:47 08:50 WBC 25.0 H (4.8-10.8) x10^3/uL RBC 3.54 L (4.20-5.40) 10^6/uL Hgb 9.5 L (12.0-16.0) g/dL Hct 30.0 L (37.0-47.0) % MCV 84.7 (81.0-99.0) fL MCH 26.8 L (27.0-31.0) pg MCHC 31.7 L (32.0-36.0) g/dL RDW 14.0 (12.0-15.0) % Plt Count 366 (130-450) 10^3/uL MPV 10.5 (7.9-10.8) fL Neut # (Auto) Not Reportable Lymph # (Auto) Not Reportable Larue # (Auto) Not Reportable Eos # (Auto) Not Reportable Baso # (Auto) Not Reportable Absolute Nucleated RBC Not Reportable Total Counted 100 Band Neuts % (Manual) 2 (0 - 10) % Abnorm Lymph % (Manual) 0 % Nucleated RBC % Not Reportable Neutrophils # (Manual) 22.3 H (1.5-6.6) 10^3/uL Lymphocytes # (Manual) 2.0 (1.5-3.5) 10^3/uL Monocytes # (Manual) 0.8 (0.0-1.0) 10^3/uL Eosinophils # (Manual) 0.0 (0-0.7) 10^3/uL Basophils # (Manual) 0.0 (0-0.1) 10^3/uL Differential Comment MANUAL DIFFERENTIAL Manual Slide Review Indicated WBC Morphology NORMAL APPEARANCE (NORMAL) Platelet Estimate NORMAL (130-450,000) (NORMAL) Platelet Morphology NORMAL SAL (NORMAL) RBC Morph Micro Appear 1+ POLYCHR (NORMAL) Sodium 135 (135-145) mmol/L Potassium 3.7 (3.5-5.0) mmol/L Chloride 104 (101-111) mmol/L Carbon Dioxide 18 L (21-32) mmol/L Anion Gap 13.0 (6-13) BUN 8 (6-20) mg/dL Creatinine 0.7 (0.4-1.0) mg/dL Estimated GFR (MDRD) 100 (>89) Glucose 115 H (70-100) mg/dL Calcium 9.2 (8.5-10.3) mg/dL Total Bilirubin 0.4 (0.2-1.0) mg/dL AST 26 (10-42) IU/L ALT 13 (10-60) IU/L Alkaline Phosphatase 149 H (42-121) IU/L Total Protein 6.2 L (6.7-8.2) g/dL Albumin 2.5 L (3.2-5.5) g/dL Globulin 3.7 (2.1-4.2) g/dL Albumin/Globulin Ratio 0.7 L (1.0-2.2) Urine Creatinine 120.3 mg/dL Ur Total Protein Timed 53 mg/dL Protein/Creatinin Ratio 0.4 H (<=0.2) Assessment/Plan - Problem List (1) (spontaneous vaginal delivery) Impression: elivated WBC but no fever. Breast feeding (2) Pre-eclampsia Impression: BP normalized P/C ratio was 0.4. will repeat [facility] labs. Qualifiers: Trimester: unspecified trimester Qualified Code(s): O14.90 - Unspecified pre-eclampsia, unspecified trimester
[2020-07-07 08:34] LABS: BASOPHILS # (AUTO) 0.1 10^3/uL (0.0-0.1); BASOPHILS % (AUTO) 0.4 %; EOSINOPHILS # (AUTO) 0.2 10^3/uL (0.0-0.7); EOSINOPHILS % (AUTO) 1.1 %; LYMPHOCYTES # (AUTO) 2.8 10^3/uL (1.5-3.5); LYMPHOCYTES % (AUTO) 16.9 %; MEAN CORPUSCULAR HEMOGLOBIN 27.2 pg (27.0-31.0); MEAN CORPUSCULAR HGB CONC 31.5 g/dL (32.0-36.0); MEAN CORPUSCULAR VOLUME 86.4 fL (81.0-99.0); MEAN PLATELET VOLUME 10.1 fL (7.9-10.8); MONOCYTES % (AUTO) 5.9 %; NEUTROPHILS # (AUTO) 12.4 10^3/uL (1.5-6.6); NEUTROPHILS % (AUTO) 74.4 %; PLT - PLATELET COUNT 347 10^3/uL (130-450); RED BLOOD COUNT 3.31 10^6/uL (4.20-5.40); RED CELL DISTRIBUTION WIDTH 14.1 % (12.0-15.0); WHITE BLOOD COUNT 16.7 x10^3/uL (4.8-10.8)
[2020-07-07 08:44] LABS: ALBUMIN 2.4 g/dL (3.2-5.5); ALBUMIN/GLOBULIN RATIO 0.6 (1.0-2.2); BILIRUBIN,TOTAL 0.5 mg/dL (0.2-1.0); CALCIUM 8.8 mg/dL (8.5-10.3); CREATININE 0.7 mg/dL (0.4-1.0); TOTAL PROTEIN 6.1 g/dL (6.7-8.2); URIC ACID 6.4 mg/dL (2.6-7.2)
[2020-07-07] MEDS: LACTATED RINGERS 1,000 ML IV SCH ×4 (10:23→16:24)
[2020-07-07] MEDS: SODIUM CHLORIDE FLUSH 0.9% 10 ML SYRINGE IVP SCH ×2 (10:23→16:23)
[2020-07-07 13:38] LABS: CREATININE,URINE 46.2 mg/dL; PROTEIN/CREATININE RATIO,URINE 0.3 (<=0.2)
[2020-07-07] MEDS: FAMOTIDINE 20 MG/2 ML VIAL IVP SCH (16:23)
[2020-07-07] MEDS: CALCIUM CARBONATE CHEW 500 MG TABLET PO SCH (16:23)
[2020-07-07 16:51] VITALS: BP 124/77
--- NOTE | 2020-07-07 17:17 | Discharge Plan ---
Discharge Plan Problem Reviewed?: Yes Disposition: Home, Self Care Condition: Good Diet: Regular Activity Restrictions: PELVIC REST Shower Restrictions: No Driving Restrictions: No Weight Bearing: Full Weight No Smoking: If you smoke, Please STOP! Call for help.
--- NOTE | 2020-07-07 18:24 | Labor Flowsheet ---
Labor Flowsheet Datetime Report Generated by CPN: 07/07/2020 18:23 Datetime: 07/07/2020 16:50 VITAL SIGNS NBP Sys/Sofiya/Mean (mmHg): 124 : 77 : 88 Pulse: 84 Datetime: 07/07/2020 16:49 SpO2 (%): 99 Datetime: 07/06/2020 09:23 Temperature (C): 36.7 Temperature Route: Oral Datetime: 07/06/2020 09:10 Stage of : Recovery Datetime: 07/06/2020 08:19 LaborFlag: Labor Datetime: 07/06/2020 08:10 Medication Comments: hemabate Datetime: 07/06/2020 08:05 Vacuum: Off Datetime: 07/06/2020 08:01 Comments: vacuum on Datetime: 07/06/2020 08:00 UTERINE ACTIVITY Monitor Mode: External Frequency (min): 1.5-4 Quality: Strong Duration (sec): 50-80 Pattern: Normal: <= 5 Contractions in 10 Minutes Resting Tone (Palpate): Relaxed ASSESSMENT A Monitor Mode: External US FHR Baseline Rate : 170 Variability: Minimal - Undetectable to <=5 bpm Accelerations: None Decelerations: Variable Category: Category II Datetime: 07/06/2020 07:45 FHR Baseline Changes: No Baseline Change Datetime: 07/06/2020 07:30 Actions for Decelerations: Provider Notified (Annotations: CNM and MD @ BS in prep for delive ry) Datetime: 07/06/2020 07:20 COMMUNICATION Communication: Provider at Bedside Provider Notified (Name): Giem Communication Comments: Doc @ BS discussing plan of delivery with pt Datetime: 07/06/2020 07:15 Resting Tone IUP (mmHg): 10 Intensity IUP (mmHg): 35 Datetime: 07/06/2020 07:12 Contraction Comments: toco reapplied Datetime: 07/06/2020 07:10 Monitor Interventions for FHR: Ultrasound Adjusted Datetime: 07/06/2020 07:02 MEDICATIONS Pitocin (milliunits): Increased to @ 26 Datetime: 07/06/2020 07:00 Respirations: 18 PAIN Pain Scale: 0 Pain Presence: None/Denies Anesthesia Level Check: T10- Umbilicus Datetime: 07/06/2020 06:50 Patient Care Comments: taylor cath out Datetime: 07/06/2020 06:04 Pushing Progress: Descent with Pushing Datetime: 07/06/2020 05:55 Pushing Position: Pushing with Contractions; Pushing Left Side Datetime: 07/06/2020 05:00 MONTEVIDEO UNITS (Computed) Contractions in Ten Minutes: 5 IUPC Average Intensity: 40 IUPC Average Resting Tone: 0 [place] Units (mmHg): 200 Datetime: 07/06/2020 04:17 STAGE 2 Pushing: Coached on Pushing Datetime: 07/06/2020 04:15 VAGINAL EXAM Dilatation (cm): 10.0 Effacement (%): 100 Station: 1 Exam by: hmahala Datetime: 07/06/2020 02:00 Pitocin Checklist: At Least 1 Acceleration of 15 bpm x 15 Seconds in 30 Minutes or Adequate Variabi lity Datetime: 07/06/2020 01:00 ANESTHESIA Anesthesia Plans: Epidural Datetime: 07/06/2020 00:02 Oxygen Method: Room Air Datetime: 07/05/2020 23:33 Patient Position/Activity: Right Lateral Datetime: 07/05/2020 20:00 MATERNAL ASSESSMENT Level of Consciousness: Alert Headache: Denies Breath Sounds, Left: Clear and Equal Breath Sounds, Right: Clear and Equal Nausea/Vomiting: Denies RUQ Epigastric Pain: Denies Datetime: 07/05/2020 19:13 I/O Interventions: Taylor Cath Inserted Datetime: 07/05/2020 18:45 [place] Units (mmHg): 140 Datetime: 07/05/2020 17:31 Epidural Procedure Other: Pump Started Datetime: 07/05/2020 17:21 Epidural Procedure: Test Dose Datetime: 07/05/2020 17:08 PROCEDURE TIME OUT Procedure Verify: Correct Patient Identity; Accurate Procedure Consent Form; Agreement on Procedure to be Done; Correct Patient Position Epidural Positioning: Sitting Anesthesia Comments: AIRCRAFT REFUELLER Aube @ bedside for replacement of epidural Datetime: 07/05/2020 16:18 Pain Type: Cramping; Contraction; Pressure Pain Location: Abdomen Pain Coping: Requesting Pain Medication or Epidural Pain Assessment Comments: requesting epidural Comfort Measures: Anesthesia Notified Datetime: 07/05/2020 15:54 PATIENT CARE IV/Blood Work: New IV Bag Hung Datetime: 07/05/2020 12:39 Monitor Interventions for UA: IUPC Inserted Datetime: 07/05/2020 12:32 Membrane Status: Ruptured Membranes Rupture Method: Artificial Amniotic Fluid Color: Clear Amniotic Fluid Amount: Moderate Amniotic Fluid Odor: Normal Datetime: 07/05/2020 12:26 Notification Reason: Status Update; Status; Uterine Activity Datetime: 07/05/2020 09:05 Nurse Giving Report: Lore Blum RN Nurse Receiving Report: Lore Sosa RN Datetime: 07/05/2020 02:44 DTR's/Clonus: DTRs 2+; No Clonus Datetime: 07/04/2020 22:56 Analgesics/Sedatives: Ambien (mg) @ 5 Datetime: 07/04/2020 21:32 Plan of Care: Plan of Care Discussed Teaching Comments: will shut pitocin off 2144; pt agrees to plan Datetime: 07/04/2020 19:21 Vital Sign Comments: Epidural site WNL; sore so ice was placed on site Pain Relief Measures: Comfort Measures TEACHING Instructional Method: Verbal Pain Management: Pain Scale/Goals; Comfort Measures Datetime: 07/04/2020 18:52 Cervix, Consistency: Soft Datetime: 07/04/2020 14:15 Provider Reviewed Strip: Yes Datetime: 07/04/2020 08:10 Cervical Ripening Agents: Taylor Balloon Datetime: 07/03/2020 18:21 Vaginal Bleeding: Normal Show Cervix, Position: Midposition Datetime: 07/03/2020 14:09 Antiemetics/Antacids: Zofran (mg) @ 4 Datetime: 07/02/2020 19:36 Pain Goal: 3
--- NOTE | 2020-07-08 02:24 | DISCHARGE SUMMARY ---
Physician: Tomás Childs MD DATE OF ADMISSION: 07/04/2020 DATE OF DISCHARGE: 07/07/2020 ADMITTING DIAGNOSES 1. 38 weeks 4 days. 2. Gestational hypertension. 3. Body mass index 44.9. 4. Suspected macrosomia. DISCHARGE DIAGNOSES 1. 38 weeks 4 days. 2. Gestational hypertension. 3. Body mass index 44.9. 4. Suspected macrosomia. 5. Preeclampsia. 6. Mild shoulder dystocia. 7. Prolonged induction. PROCEDURES 1. Misoprostol cervical ripening. 2. Cook catheter. 3. Artificial rupture of membranes. 4. Pitocin induction. 5. Epidural. 6. Vacuum-assisted vaginal delivery. PRESENTING HISTORY: Patient is a 25-year-old primigravida who is 38 weeks 4 days. She was a recent transfer from [facility] [employer] [facility] at 37 weeks 1 day. She presented with elevated blood pressur es in the clinic, running 140s/90s in the clinic as well at home. She denied any headache or any oth er complaints. On admission, her cervix was felt to be closed and high. For this reason, she presen tom for misoprostol induction. LABORATORIES: CBC on admission showed a white count of 12.7, hemoglobin was 10.0, hematocrit was 31. 3, platelets were initially 139. Her white count reached zenith on the day of delivery at 25. Her h emoglobin fell to a jam of 9.0. Her platelets remained stable throughout. Chemistries: Her elect rolytes all remained essentially normal. Her creatinine initially was 0.5 and reached a max of 0.7. Her AST and ALT were both normal. Her uric acid on 07/07/2020 reached a max of 6.4. Her protein-cr eatinine on admission was 0.1, reached a zenith of 0.4 on 07/06/2020 and on 07/07/2020 was 0.3. HOSPITAL COURSE: The patient received 6 doses of misoprostol. She had a Cook catheter placed for ce rvical ripening, which fell out twice. She was initiated on Pitocin. She was AROM'd when possible. She received an epidural for labor analgesia. She had slow progress, but continued to progress. Sh e reached complete at 0415 and she started pushing at 0420. Because of a history of prolonged Pitoci n administration, the concerns about a possible hemorrhage were reviewed. Because of mate rnal exhaustion, a vacuum was placed, pulled with 2 contractions, starting at +3. The head easily de livered. However, the shoulders followed 40 seconds later with Essence maneuver. There was also a short cord noted at time of delivery. Patient estimated blood loss was only 200 mL. Both mother an d tolerated delivery well. She was treated with Pitocin as well as Hemabate to prevent atony. Her course has been unremarkable. Her blood pressures have been running in the 116-137. The diastolics have run from 70-83. She denies any headaches. She highly desires to go home at this time. She has not needed to receive any magnesium or any antihypertensive. She is being discharged to home. She will take Tylenol for pain as well as Colace for her stools. I do not believe she nee ds narcotics at this time. She will have a repeat blood pressure check tomorrow as well as a followu p in the clinic on the next week. TD: 07/07/2020 17:37
== END 2020-07-07 18:15 | disposition home or self-care (01) | DRG 807 ==
LOC: WFO 14:17 → FBP 14:20 → WFO 16:23 → FBP 16:24 → OBSVTOIN 07-04 09:41
PROVIDERS: ADMIT Nurse Practitioner Obstetrics & Gynecology; ATTEND Obstetrics & Gynecology
PROC: 10907ZC Drainage of Amniotic Fluid, Therapeutic from Products of Conception, Via Natural or Artificial Opening (ICD-10-PCS; principal; 2020-07-06)
PROC: 10D07Z6 Extraction of Products of Conception, Vacuum, Via Natural or Artificial Opening (ICD-10-PCS; 2020-07-06)
DX: O13.4 Gestational [pregnancy-induced] hypertension without significant proteinuria, complicating childbirth (principal); Z37.0 Single live birth; O66.0 Obstructed labor due to shoulder dystocia; O36.63X0 Maternal care for excessive fetal growth, third trimester, not applicable or unspecified; O14.94 Unspecified pre-eclampsia, complicating childbirth; Z3A.38 38 weeks gestation of pregnancy; O99.214 Obesity complicating childbirth; O70.0 First degree perineal laceration during delivery; E66.01 Morbid (severe) obesity due to excess calories
CPT/HCPCS: 36415; 51703; 80053; 82570; 84156; 84550; 85025; 85027; 86850; 86900; 86901; 86920; 96374; 96375; 96376; A9270; G0378; J1200; J7120

== ENCOUNTER 2020-07-08 15:27 | Outpatient (CLI) | payer OTHER ==
[2020-07-08 17:01] VITALS: BP 135/81
== END 2020-07-08 16:30 | disposition home or self-care (01) ==
LOC: WFO 15:27
PROVIDERS: ATTEND Obstetrics & Gynecology
DX: Z53.9 Procedure and treatment not carried out, unspecified reason (principal)

== ENCOUNTER 2020-07-09 13:41 | Outpatient (CLI) | payer OTHER ==
[2020-07-09 14:01] VITALS: BP 135/82
--- NOTE | 2020-07-09 15:02 | Labor Flowsheet ---
Labor Flowsheet Datetime Report Generated by CPN: 07/09/2020 15:02 Datetime: 07/09/2020 13:59 VITAL SIGNS NBP Sys/Sofiya/Mean (mmHg): 135 : 82 : 101 Pulse: 64 Datetime: 07/07/2020 16:49 SpO2 (%): 99 Datetime: 07/06/2020 09:23 Temperature (C): 36.7 Temperature Route: Oral Datetime: 07/06/2020 09:10 Stage of : Recovery Datetime: 07/06/2020 08:19 LaborFlag: Labor Datetime: 07/06/2020 08:10 Medication Comments: hemabate Datetime: 07/06/2020 08:05 Vacuum: Off Datetime: 07/06/2020 08:01 Comments: vacuum on Datetime: 07/06/2020 08:00 UTERINE ACTIVITY Monitor Mode: External Frequency (min): 1.5-4 Quality: Strong Duration (sec): 50-80 Pattern: Normal: <= 5 Contractions in 10 Minutes Resting Tone (Palpate): Relaxed ASSESSMENT A Monitor Mode: External US FHR Baseline Rate : 170 Variability: Minimal - Undetectable to <=5 bpm Accelerations: None Decelerations: Variable Category: Category II Datetime: 07/06/2020 07:45 FHR Baseline Changes: No Baseline Change Datetime: 07/06/2020 07:30 Actions for Decelerations: Provider Notified (Annotations: CNM and MD @ BS in prep for delive ry) Datetime: 07/06/2020 07:20 COMMUNICATION Communication: Provider at Bedside Provider Notified (Name): Giem Communication Comments: Doc @ BS discussing plan of delivery with pt Datetime: 07/06/2020 07:15 Resting Tone IUP (mmHg): 10 Intensity IUP (mmHg): 35 Datetime: 07/06/2020 07:12 Contraction Comments: toco reapplied Datetime: 07/06/2020 07:10 Monitor Interventions for FHR: Ultrasound Adjusted Datetime: 07/06/2020 07:02 MEDICATIONS Pitocin (milliunits): Increased to @ 26 Datetime: 07/06/2020 07:00 Respirations: 18 PAIN Pain Scale: 0 Pain Presence: None/Denies Anesthesia Level Check: T10- Umbilicus Datetime: 07/06/2020 06:50 Patient Care Comments: taylor cath out Datetime: 07/06/2020 06:04 Pushing Progress: Descent with Pushing Datetime: 07/06/2020 05:55 Pushing Position: Pushing with Contractions; Pushing Left Side Datetime: 07/06/2020 05:00 MONTEVIDEO UNITS (Computed) Contractions in Ten Minutes: 5 IUPC Average Intensity: 40 IUPC Average Resting Tone: 0 [place] Units (mmHg): 200 Datetime: 07/06/2020 04:17 STAGE 2 Pushing: Coached on Pushing Datetime: 07/06/2020 04:15 VAGINAL EXAM Dilatation (cm): 10.0 Effacement (%): 100 Station: 1 Exam by: hmahala Datetime: 07/06/2020 02:00 Pitocin Checklist: At Least 1 Acceleration of 15 bpm x 15 Seconds in 30 Minutes or Adequate Variabi lity Datetime: 07/06/2020 01:00 ANESTHESIA Anesthesia Plans: Epidural Datetime: 07/06/2020 00:02 Oxygen Method: Room Air Datetime: 07/05/2020 23:33 Patient Position/Activity: Right Lateral Datetime: 07/05/2020 20:00 MATERNAL ASSESSMENT Level of Consciousness: Alert Headache: Denies Breath Sounds, Left: Clear and Equal Breath Sounds, Right: Clear and Equal Nausea/Vomiting: Denies RUQ Epigastric Pain: Denies Datetime: 07/05/2020 19:13 I/O Interventions: Taylor Cath Inserted Datetime: 07/05/2020 18:45 [place] Units (mmHg): 140 Datetime: 07/05/2020 17:31 Epidural Procedure Other: Pump Started Datetime: 07/05/2020 17:21 Epidural Procedure: Test Dose Datetime: 07/05/2020 17:08 PROCEDURE TIME OUT Procedure Verify: Correct Patient Identity; Accurate Procedure Consent Form; Agreement on Procedure to be Done; Correct Patient Position Epidural Positioning: Sitting Anesthesia Comments: EDUCATIONAL ADVISOR Aube @ bedside for replacement of epidural Datetime: 07/05/2020 16:18 Pain Type: Cramping; Contraction; Pressure Pain Location: Abdomen Pain Coping: Requesting Pain Medication or Epidural Pain Assessment Comments: requesting epidural Comfort Measures: Anesthesia Notified Datetime: 07/05/2020 15:54 PATIENT CARE IV/Blood Work: New IV Bag Hung Datetime: 07/05/2020 12:39 Monitor Interventions for UA: IUPC Inserted Datetime: 07/05/2020 12:32 Membrane Status: Ruptured Membranes Rupture Method: Artificial Amniotic Fluid Color: Clear Amniotic Fluid Amount: Moderate Amniotic Fluid Odor: Normal Datetime: 07/05/2020 12:26 Notification Reason: Status Update; Status; Uterine Activity Datetime: 07/05/2020 09:05 Nurse Giving Report: Lore Blum RN Nurse Receiving Report: Lore Sosa RN Datetime: 07/05/2020 02:44 DTR's/Clonus: DTRs 2+; No Clonus Datetime: 07/04/2020 22:56 Analgesics/Sedatives: Ambien (mg) @ 5 Datetime: 07/04/2020 21:32 Plan of Care: Plan of Care Discussed Teaching Comments: will shut pitocin off 2144; pt agrees to plan Datetime: 07/04/2020 19:21 Vital Sign Comments: Epidural site WNL; sore so ice was placed on site Pain Relief Measures: Comfort Measures TEACHING Instructional Method: Verbal Pain Management: Pain Scale/Goals; Comfort Measures Datetime: 07/04/2020 18:52 Cervix, Consistency: Soft Datetime: 07/04/2020 14:15 Provider Reviewed Strip: Yes Datetime: 07/04/2020 08:10 Cervical Ripening Agents: Taylor Balloon Datetime: 07/03/2020 18:21 Vaginal Bleeding: Normal Show Cervix, Position: Midposition Datetime: 07/03/2020 14:09 Antiemetics/Antacids: Zofran (mg) @ 4 Datetime: 07/02/2020 19:36 Pain Goal: 3
== END 2020-07-09 14:30 | disposition home or self-care (01) ==
LOC: WFO 13:41 → FBP 13:47 → WFO 14:30
PROVIDERS: ATTEND Obstetrics & Gynecology
DX: Z53.9 Procedure and treatment not carried out, unspecified reason (principal)

== ENCOUNTER 2020-08-03 08:00 | Outpatient (CLI) | payer OTHER | END 2020-08-03 23:59 | disposition home or self-care (01) | LOC: LAB.R 08:00 | PROVIDERS: ATTEND Nurse Practitioner Obstetrics & Gynecology | DX: O86.13 Vaginitis following delivery (principal); R30.0 Dysuria | CPT/HCPCS: 87086; 87181 ==

== ENCOUNTER 2020-08-18 10:12 | Outpatient (CLI) | payer OTHER | END 2020-08-18 10:13 | disposition home or self-care (01) | LOC: COV 10:12 | PROVIDERS: ATTEND Advanced Practice Midwife | DX: Z39.1 Encounter for care and examination of lactating mother (principal); Z20.828 Contact with and (suspected) exposure to other viral communicable diseases ==

== ENCOUNTER 2020-08-30 08:00 | Outpatient (CLI) | payer OTHER ==
[2020-08-30 16:22] LABS: BILIRUBIN,URINE NEGATIVE (NEGATIVE); GLUCOSE, URINE (UA) NEGATIVE (NEGATIVE); KETONES,URINE (UA) NEGATIVE (NEGATIVE); LEUKOCYTE ESTERASE, URINE MODERATE (NEGATIVE); NITRITE,URINE NEGATIVE (NEGATIVE); OCCULT BLOOD,URINE SMALL (NEGATIVE); PROTEIN,URINE NEGATIVE (NEGATIVE); UROBILINOGEN,URINE 0.2 (NORMAL) E.U./dL (NORMAL)
[2020-08-30 16:25] LABS: CLARITY,URINE CLOUDY (CLEAR)
[2020-08-30 16:37] LABS: BACTERIA,URINE Moderate /HPF (None Seen); SQUAMOUS EPITHELIAL CELL,UR NONE SEEN (<= Few)
== END 2020-08-30 08:01 | disposition home or self-care (01) ==
LOC: LAB.WC 08:00
PROVIDERS: ATTEND Obstetrics & Gynecology
DX: N39.0 Urinary tract infection, site not specified (principal)
CPT/HCPCS: 81001; 87086; 87181

== ENCOUNTER 2021-05-09 14:45 | Outpatient (CLI) | payer OTHER ==
[2021-05-10 11:49] LABS: BILIRUBIN,URINE NEGATIVE (NEGATIVE); GLUCOSE, URINE (UA) NEGATIVE (NEGATIVE); KETONES,URINE (UA) NEGATIVE (NEGATIVE); LEUKOCYTE ESTERASE, URINE TRACE (NEGATIVE); NITRITE,URINE NEGATIVE (NEGATIVE); OCCULT BLOOD,URINE NEGATIVE (NEGATIVE); PROTEIN,URINE NEGATIVE (NEGATIVE); UROBILINOGEN,URINE 0.2 (NORMAL) E.U./dL (NORMAL)
[2021-05-10 11:52] LABS: CLARITY,URINE CLEAR (CLEAR)
[2021-05-10 12:09] LABS: BACTERIA,URINE Few /HPF (None Seen); RBC,URINE None Seen /HPF (0-5); SQUAMOUS EPITHELIAL CELL,UR FEW Squamous (<= Few); WBC,URINE 0-3 /HPF (0-5)
== END 2021-05-09 23:59 | disposition home or self-care (01) ==
LOC: LAB.WCP 14:45
PROVIDERS: ATTEND Nurse Practitioner Obstetrics & Gynecology
DX: Z36.89 Encounter for other specified antenatal screening (principal)
CPT/HCPCS: 81001; 87086

== ENCOUNTER 2021-05-27 11:06 | Outpatient (CLI) | payer OTHER ==
--- NOTE | 2021-05-27 13:06 | Ultrasound Report ---
PROCEDURE: OB First Trimester INDICATIONS: +PREG TEST OUTSIDE/PRIOR DATING DATA: Last menstrual period (LMP): 03/26/2021. LMP-based estimated date of delivery (MARGARETTE): 12/31/2021. First dating scan (date and location): 05/27/2021. Estimated date of delivery (MARGARETTE) from first dating scan: 12/26/2021. The below data below was generated using the ultrasound MARGARETTE of 12/26/2021 TECHNIQUE: Real-time scanning was performed of the fetus and maternal pelvic organs, with image documentation. COMPARISON: None from this FINDINGS: Embryo: There is an intrauterine gestational sac seen, with a pole present, which measures 2.7 cm, which corresponds to an estimated gestational age of 9 weeks 4 days. cardiac activity is s een, with a measured heart rate of 171 bpm. A normal-appearing yolk sac can be seen. There is modera te perigestational/subchorionic hemorrhage, with a hypoechoic focus inferior to the gestational sac t hat measures 2 x 0.7 x 2 cm. Measurement variability in dating: +/- 4 weeks by LMP, +/- 7 days by mean sac diameter (use before 6 weeks gestation if crown-rump length not able to be measured), +/- 5 days by crown-rump length (6-12 weeks gestation). Maternal organs: Ovaries are within normal limits, with a right ovarian corpus luteum. IMPRESSION: Single live intrauterine . No significant discrepancy is found between the estimated gestational age based upon these images and the estimated gestational age based upon the given date of the last menstrual period. Moderate subchorionic hemorrhage seen. Close clinical follow-up with serial beta hCG measurements and serial ultrasound would be recommended , as clinically appropriate. Reviewed by: Juan Miguel Vernon MD on 05/27/2021 12:05 PM DIANA Approved by: Juan Miguel Vernon MD on 05/27/2021 12:05 PM DIANA Station ID: [id number]
== END 2021-05-27 11:07 | disposition home or self-care (01) ==
LOC: DI 11:06
PROVIDERS: ATTEND Nurse Practitioner Obstetrics & Gynecology
DX: O46.8X1 Other antepartum hemorrhage, first trimester (principal); Z3A.09 9 weeks gestation of pregnancy

== ENCOUNTER 2021-06-06 08:00 | Outpatient (CLI) | payer OTHER ==
[2021-06-07 12:35] LABS: BILIRUBIN,URINE NEGATIVE (NEGATIVE); GLUCOSE, URINE (UA) NEGATIVE (NEGATIVE); KETONES,URINE (UA) NEGATIVE (NEGATIVE); LEUKOCYTE ESTERASE, URINE TRACE (NEGATIVE); NITRITE,URINE NEGATIVE (NEGATIVE); OCCULT BLOOD,URINE NEGATIVE (NEGATIVE); PROTEIN,URINE NEGATIVE (NEGATIVE); UROBILINOGEN,URINE 0.2 (NORMAL) E.U./dL (NORMAL)
[2021-06-07 12:55] LABS: AMORPHOUS SEDIMENT,UR Moderate /LPF; BACTERIA,URINE Rare /HPF (None Seen); CLARITY,URINE CLOUDY (CLEAR); CRYSTALS,URINE 6-10 Calcium Oxalate /LPF; MUCUS,URINE Marked Strands; RBC,URINE 0-5 /HPF (0-5); SQUAMOUS EPITHELIAL CELL,UR MANY Squamous (<= Few)
== END 2021-06-06 22:55 | disposition home or self-care (01) ==
LOC: LAB.WC 08:00
PROVIDERS: ATTEND Nurse Practitioner Obstetrics & Gynecology
DX: O09.899 Supervision of other high risk pregnancies, unspecified trimester (principal); Z36.8A Encounter for antenatal screening for other genetic defects
CPT/HCPCS: 81001; 87086

== ENCOUNTER 2021-07-10 10:49 | Outpatient (CLI) | payer OTHER ==
[2021-07-10 11:14] LABS: BASOPHILS % (AUTO) 0.2 %; EOSINOPHILS # (AUTO) 0.1 10^3/uL (0.0-0.7); EOSINOPHILS % (AUTO) 0.8 %; HCT - HEMATOCRIT 37.2 % (37.0-47.0); HGB - HEMOGLOBIN 12.5 g/dL (12.0-16.0); LYMPHOCYTES # (AUTO) 2.4 10^3/uL (1.5-3.5); LYMPHOCYTES % (AUTO) 26.6 %; MEAN CORPUSCULAR HEMOGLOBIN 31.1 pg (27.0-31.0); MEAN CORPUSCULAR HGB CONC 33.6 g/dL (32.0-36.0); MEAN CORPUSCULAR VOLUME 92.5 fL (81.0-99.0); MEAN PLATELET VOLUME 9.7 fL (7.9-10.8); MONOCYTES # (AUTO) 0.6 10^3/uL (0.0-1.0); MONOCYTES % (AUTO) 6.3 %; NEUTROPHILS % (AUTO) 65.7 %; PLT - PLATELET COUNT 353 10^3/uL (130-450); RED BLOOD COUNT 4.02 10^6/uL (4.20-5.40); RED CELL DISTRIBUTION WIDTH 12.9 % (12.0-15.0); WHITE BLOOD COUNT 9.1 x10^3/uL (4.8-10.8)
[2021-07-11 11:01] LABS: HEPATITIS B SURFACE ANTIGEN NON-REACTIVE (NON-REACTIVE)
[2021-07-11 11:05] LABS: HEPATITIS C ANTIBODY NON-REACTIVE (NON-REACTIVE)
[2021-07-11 13:25] LABS: HIV AG/AB 4TH GEN NON-REACTIVE (NON-REACTIVE)
== END 2021-07-10 10:50 | disposition home or self-care (01) ==
LOC: LAB 10:49
PROVIDERS: ATTEND Nurse Practitioner Obstetrics & Gynecology
DX: O09.899 Supervision of other high risk pregnancies, unspecified trimester (principal); Z36.8A Encounter for antenatal screening for other genetic defects
CPT/HCPCS: 36415; 85025; 86592; 86762; 86787; 86803; 86850; 86900; 86901; 87340; 87389

== ENCOUNTER 2021-08-01 12:25 | Outpatient (CLI) | payer OTHER ==
[2021-08-02 12:26] LABS: AFP MOM 1.74; AGE RISK DOWN SYNDROME 1 IN 828; CIGARETTE SMOKER? NOT GIVEN; DONOR AGE: EGG RETRIEVAL NOT GIVEN; DONOR EGG NO; EDD DETERMINED BY ULTRASOUND; ESTRIOL MOM 0.79; HCG MOM 4.51; HX OF NEURAL TUBE DEFECTS NO; INHIBIN A MOM 1.97; INSULIN DEPEND DIABETIC NO; MATERNAL WEIGHT 232 lbs; MSS DOWN SYNDROME RISK 1 IN 3129; MSS3 TRISOMY 18 RISK <1 IN 5000; NUMBER OF FETUSES 1; PREV PREGNANCY DOWN SYND NO; RISK FOR ONTD 1 IN 656
== END 2021-08-01 12:26 | disposition home or self-care (01) ==
LOC: LAB 12:25
PROVIDERS: ATTEND Nurse Practitioner Obstetrics & Gynecology
DX: Z36.8A Encounter for antenatal screening for other genetic defects (principal)
CPT/HCPCS: 36415; 81511

== ENCOUNTER 2021-08-08 13:54 | Outpatient (CLI) | payer OTHER ==
--- NOTE | 2021-08-09 11:16 | Ultrasound Report ---
PROCEDURE: OB Detailed Eval INDICATIONS: SUPERVISION OF HIGH RISK OUTSIDE/PRIOR DATING DATA: Last menstrual period (LMP): 03/26/2021. LMP-based estimated date of delivery (MARGARETTE): 12/31/2021. First dating scan (date and location): 05/27/2021. Estimated date of delivery (MARGARETTE) from first dating scan: 12/26/2021. The below data below was generated using the ultrasound derived MARGARETTE of 12/26/2021 TECHNIQUE: Real-time scanning was performed of the fetus, with image documentation and biometric measurements. COMPARISON: 05/27/2021. FINDINGS: Evaluation limited by maternal body habitus and limited ability to tolerate positioning. General: A single living intrauterine gestation is present. Presentation: Variable Placenta: Placental position is anterior and appears low lying with the inferior margin approximatel y 1.7 cm from the internal cervical os. There are multiple prominent placental venous lakes, with the largest measuring up to 8.5 x 3.0 x 3.1 cm. Amniotic fluid index: 15.8 cm, within normal limits for gestational age. Largest fluid pocket measu res 4.4 cm. heart rate: 145 beats per minute. Maternal cervical canal: 5.4 cm long; normal length is 2.5 cm or more. biometrics: Biparietal diameter: 4.5 cm, 19 weeks 5 days Head circumference: 17.8 cm, 20 weeks 2 days Abdominal circumference: 15.5 cm, 20 weeks 5 days Femur length: 3.4 cm, 20 weeks 5 days Estimated gestational age from initial scan: 20 weeks 0 days Composite gestational age from present scan: 20 weeks 1 day Estimated weight and percentile: 366 g corresponding to the 80th percentile Measurement variability in biometric dating: +/- 10 days from 12-20 weeks gestation, +/- 2 weeks from 20-30 weeks gestation, +/- 3 weeks at 30 weeks gestation or later. Anatomic survey: Neuro: Ventricles are normal at less than 10 mm. Cisterna magna is normal at 3-11 mm. Cerebellum i s normal in size and morphology. Nuchal skin fold: Normal at less than 6 mm between 14 and 20 weeks gestational age. Face: The nose was not well visualized. lips and profile demonstrate no definite abnormal ity. Spine: Limited visualization of the skin line secondary to positioning. Heart: 4-chambered heart is present, with grossly normal ventricular outflow tracts. Diaphragm: Diaphragm is intact. Stomach: Not well visualized. Kidneys: No hydronephrosis. Normal is less than 5 mm in 2nd trimester, less than 7 mm in 3rd trimester. Cord: 3 vessel cord has orthotopic insertion. Bladder: Not well visualized. Extremities: All 4 extremities are visualized. IMPRESSION: 1. Single living intrauterine demonstrating appropriate interval growth with estimated feta l weight at the 80th percentile. 2. Low-lying placenta demonstrated. Recommend attention on follow-up. 3. Multiple prominent venous lakes in the placenta of indeterminate clinical significance. Recommend attention on follow-up. 4. Limited anatomic survey due to maternal body habitus and limited positioning as well as feta l positioning. The nose and spine skin line views were not well visualized. In addition, ventri cular outflow tract, stomach, and urinary bladder views were also suboptimal. Recommend short-term fo llow-up repeat imaging in 2-4 weeks for further evaluation. Reviewed by: Du Muñoz MD on 08/09/2021 11:15 AM PST Approved by: Du Muñoz MD on 08/09/2021 11:15 AM PST Station ID: [id number]
== END 2021-08-08 13:55 | disposition home or self-care (01) ==
LOC: DI 13:54
PROVIDERS: ATTEND Nurse Practitioner Obstetrics & Gynecology
DX: O09.892 Supervision of other high risk pregnancies, second trimester (principal); Z36.89 Encounter for other specified antenatal screening; O44.42 Low lying placenta NOS or without hemorrhage, second trimester; Z3A.20 20 weeks gestation of pregnancy

== ENCOUNTER 2021-08-10 18:26 | Outpatient (CLI) | payer OTHER ==
[2021-08-10 18:38] VITALS: BP 139/79
--- NOTE | 2021-08-10 19:10 | PROVIDER PROGRESS NOTE ---
- HPI Current : Vital Signs Temperature 98.1 F 08/10/21 18:36 Heart Rate 65 08/10/21 18:36 Respiratory Rate 18 08/10/21 18:36 Blood Pressure 139/79 H 08/10/21 18:36 O2 Saturation 100 08/10/21 18:36 - Procedures Findings: Patient is a 26-year-old -0-0-1 at 20 weeks 2 days gestation presenting to triage for low back pain for 1 week. She said this is been bothering for some time, without worse today. She has been using a table for support as certain movements hurt. She did take a dose of 1000 mg of Tylenol yesterday, has had nothing today. She says movement and certain activities worsen it, nothing seems to make it significantly better except holding still. She does not recall any activity that made it acutely worse. 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 Today she picked up her 1-year-old child and this was mildly more painful. She also complains of occasional cramping in her low abdomen, although nothing regular. No burning with urination. No urinary frequency. No belly tightening. She has good movement, no leaking, no vaginal bleeding. She denies headache, right upper quadrant pain, changes in vision. Much of her concerns regarding her recent ultrasound showing placental lakes has questions about what this means. Past medical history History of LGA fetus History of preeclampsia History of vacuum-assisted vaginal delivery Past surgical history Breast lumpectomy Otoplasty Family history No significant family history Social history Denies tobacco, alcohol, drugs General: Alert, oriented, no acute distress Cardio: Regular rate and rhythm Respiratory normal work of breathing Abdomen: Soft, nontender, no guarding or rebound. Negative psoas sign. No suprapubic tenderness Back: No CVA tenderness. No significant muscular or spinal tenderness heart tones: 150 by Doppler Laboratory Last Values Urine Color YELLOW 08/10/21 19:15 Urine Clarity CLEAR (CLEAR) 08/10/21 19:15 Urine pH 6.5 PH (5.0-7.5) 08/10/21 19:15 Ur Specific [place] 1.015 (1.002-1.030) 08/10/21 19:15 Urine Protein NEGATIVE mg/dL (NEGATIVE) 08/10/21 19:15 Urine Glucose (UA) NEGATIVE mg/dL (NEGATIVE) 08/10/21 19:15 Urine Ketones NEGATIVE mg/dL (NEGATIVE) 08/10/21 19:15 Urine Occult Blood NEGATIVE (NEGATIVE) 08/10/21 19:15 Urine Nitrite NEGATIVE (NEGATIVE) 08/10/21 19:15 Urine Bilirubin NEGATIVE (NEGATIVE) 08/10/21 19:15 Urine Urobilinogen 0.2 (NORMAL) E.U./dL (NORMAL) 08/10/21 19:15 Ur Leukocyte Esterase NEGATIVE (NEGATIVE) 08/10/21 19:15 Ur Microscopic Review NOT INDICATED 08/10/21 19:15 Urine Culture Comments NOT INDICATED 08/10/21 19:15 Assessment and plan 26-year-old -0-0-1 at 20 weeks 2 days gestation with low back pain 1. Low back pain: Discussed the causes and treatments of low back pain, and discussed that after 1 week this is still an acute episode. It often takes many weeks to even months for low back pain to resolve. Encouraged acetaminophen 1000 mg every 6-8 hours. Heating pad on back, avoid on belly. Warm baths at patient's preference. Avoid heavy lifting. Encouraged movement exercises and stretching. 2. Abnormal placenta: Patient with large placental lakes, largest 8 cm. Unknown etiology or course. Discussed the risk of placental lakes, although there is no interventions at this time. Warning signs for bleeding given. Has follow-up ultrasound ordered for follow-up on anatomy as well as placental location and evaluation of placental lakes. 3. Abdominal cramps: -No pain on exam. Not dann. UA is unremarkable. 4. 20 weeks gestation
[2021-08-10 19:22] LABS: BILIRUBIN,URINE NEGATIVE (NEGATIVE); GLUCOSE, URINE (UA) NEGATIVE (NEGATIVE); KETONES,URINE (UA) NEGATIVE (NEGATIVE); LEUKOCYTE ESTERASE, URINE NEGATIVE (NEGATIVE); NITRITE,URINE NEGATIVE (NEGATIVE); OCCULT BLOOD,URINE NEGATIVE (NEGATIVE); PH,URINE 6.5 PH (5.0-7.5); PROTEIN,URINE NEGATIVE (NEGATIVE); UROBILINOGEN,URINE 0.2 (NORMAL) E.U./dL (NORMAL)
[2021-08-10 19:23] LABS: CLARITY,URINE CLEAR (CLEAR)
== END 2021-08-10 19:40 | disposition home or self-care (01) ==
LOC: WFO 18:26 → FBP 18:29 → WFO 19:40
PROVIDERS: ATTEND Obstetrics & Gynecology
DX: O99.891 Other specified diseases and conditions complicating pregnancy (principal); M54.50 Low back pain, unspecified; O43.892 Other placental disorders, second trimester; R10.9 Unspecified abdominal pain; Z3A.20 20 weeks gestation of pregnancy
CPT/HCPCS: 81001; 81003; 87086; 99212; 99213

== ENCOUNTER 2021-09-02 12:46 | Outpatient (CLI) | payer OTHER ==
--- NOTE | 2021-09-02 15:05 | Ultrasound Report ---
PROCEDURE: OB F/U or Repeat INDICATIONS: SCREENING FOR GENETIC DEFECTS OUTSIDE/PRIOR DATING DATA: Last menstrual period (LMP): 03/26/2021. LMP-based estimated date of delivery (MARGARETTE): 12/31/2021. First dating scan (date and location): 05/27/2021. Estimated date of delivery (MARGARETTE) from first dating scan: 12/26/2021. The below data below was generated using the ultrasound MARGARETTE of 12/26/2021 TECHNIQUE: Real-time scanning was performed of the fetus, with image documentation and biometric measurements. COMPARISON: OB ultrasound 05/27/2021, 06/08/2021 FINDINGS: General: A single living intrauterine gestation is present. Presentation: Variable Placenta: Placental position is anterior, without previa. However, placenta is low-lying currently 1.7 cm from the internal os which appears unchanged. Venous lakes are again identified. Amniotic fluid index: 15.1 cm, within normal limits for gestational age. Largest pocket 4.9 cm heart rate: 150 beats per minute. Maternal cervical canal: 7.1 cm long; normal length is 2.5 cm or more. biometrics: Estimated gestational age from initial scan: 23 weeks 4 days Other: Nose and lips as well as spine, stomach and bladder are within normal limits. Outflow tracts r emain unable to be visualized as well as four-chamber heart. IMPRESSION: 1. Single live intrauterine . 2. Improved visualization of anatomic structures as above. However, outflow tracts remain unable to v isualize as well as 4 chambered heart. Recommend continued interval follow-up. 3. Stable appearance of low-lying placenta as well as venous lakes. Reviewed by: Ellen Jones MD on 09/02/2021 3:03 PM PST Approved by: Ellen Jones MD on 09/02/2021 3:03 PM PST Station ID: [id number]
== END 2021-09-02 12:47 | disposition home or self-care (01) ==
LOC: DI 12:46
PROVIDERS: ATTEND Nurse Practitioner Obstetrics & Gynecology
DX: Z36.8A Encounter for antenatal screening for other genetic defects (principal)

== ENCOUNTER 2021-09-27 11:16 | Inpatient (IN) | payer OTHER ==
[2021-09-27 11:55] LABS: BILIRUBIN,URINE NEGATIVE (NEGATIVE); GLUCOSE, URINE (UA) NEGATIVE (NEGATIVE); KETONES,URINE (UA) NEGATIVE (NEGATIVE); LEUKOCYTE ESTERASE, URINE NEGATIVE (NEGATIVE); NITRITE,URINE NEGATIVE (NEGATIVE); OCCULT BLOOD,URINE SMALL (NEGATIVE); PROTEIN,URINE NEGATIVE (NEGATIVE); UROBILINOGEN,URINE 0.2 (NORMAL) E.U./dL (NORMAL)
[2021-09-27 11:58] LABS: CLARITY,URINE CLEAR (CLEAR)
--- NOTE | 2021-09-27 12:53 | HISTORY & PHYSICAL EXAMINATION ---
Admit History - Visit Reason Visit Reason: Bleeding - mild, Other (Noted spotting when she woke up this morning. She has wiped 5 times with blood noted. She reports her bleeding has decreased. She notes positive movement. She denies leakage of fluid. Denies contractions. She reports a low-lying placenta as well as placental lakes. She has taken aspirin.) - : 2 Parity: 1 Care: positive: [facility] Risk/History: positive: Pre-eclampsia Complications This : positive: Other (Low lying placenta, placental lakes) Smoking Status: Former smoker - Mother's Labs Mother's Blood Type: positive: O Mother's RH: positive: Positive Meds/Allgy - Home Medications Home Medications: Ambulatory Orders Medication Instructions Recorded Confirmed Aspirin [Vazalore] 81 mg PO 09/27/21 - Allergies Allergies/Adverse Reactions: Allergies Allergy/AdvReac Type Severity Reaction Status Date / Time pineapple Allergy Edema Verified 07/01/20 15:52 Review of Systems - Constitutional Constitutional: reports: Fever, Chills Physical - Abdominal Exam Vital Signs: Temp Pulse Resp BP Pulse Ox 98.2 F 77 18 126/70 100 09/27/21 11:52 09/27/21 11:24 09/27/21 11:24 09/27/21 11:24 09/27/21 11:24 - Monitoring Heart Rate Baseline: 140 Strip Review: positive: Category I - Presentation Presentation: positive: Transverse - Speculum Exam Speculum Exam Performed: positive: Yes Findings: positive: Other (thin, pink colored, mucus like fluid noted, no active bleeding) Assessment/Plan - Problem List (1) premature rupture of membranes (PPROM) with unknown onset of labor Assessment/Plan: 26-year-old G2, P1 at 27 weeks 1 day admitted for PPROM. AmniSure positive. Patient with scant pink-colored mucus-like fluid in the vaginal vault. Will admit for expectant management. Steroids and antibiotics for latency ordered.Plan to transfer for higher level of care. [facility] contacted and awaiting acceptance. External monitoring reactive and reassuring. No contractions noted on toco. Magnesium sulfate held at this time. May consider starting for neuro protection if delivery indicated. (2) Vaginal bleeding during Assessment/Plan: Scant blood on exam as above. Ultrasound with low-lying placenta now reportedly resolved. History of placental lakes. No active vaginal bleeding on sterile speculum exam. Rh+. - Results Lab Results: Lab Results x24hrs 09/27/21 09/27/21 09/27/21 14:02 12:55 11:40 WBC 9.7 x10^3/uL x10^3/uL (4.8-10.8) RBC 3.86 10^6/uL L 10^6/uL (4.20-5.40) Hgb 12.2 g/dL g/dL (12.0-16.0) Hct 36.1 % L % (37.0-47.0) MCV 93.5 fL fL (81.0-99.0) MCH 31.6 pg H pg (27.0-31.0) MCHC 33.8 g/dL g/dL (32.0-36.0) RDW 13.3 % % (12.0-15.0) Plt Count 318 10^3/uL 10^3/uL (130-450) MPV 9.9 fL fL (7.9-10.8) Neut # (Auto) 6.6 10^3/uL 10^3/uL (1.5-6.6) Lymph # (Auto) 2.3 10^3/uL 10^3/uL (1.5-3.5) [place] # (Auto) 0.6 10^3/uL 10^3/uL (0.0-1.0) Eos # (Auto) 0.1 10^3/uL 10^3/uL (0.0-0.7) Baso # (Auto) 0.0 10^3/uL 10^3/uL (0.0-0.1) Absolute Nucleated RBC 0.00 x10^3/uL x10^3/uL Nucleated RBC % 0.0 /100WBC /100WBC Urine Color YELLOW Urine Clarity CLEAR (CLEAR) Urine pH 6.0 PH PH (5.0-7.5) Ur Specific [place] <=1.005 (1.002-1.030) Urine Protein NEGATIVE mg/dL mg/dL (NEGATIVE) Urine Glucose (UA) NEGATIVE mg/dL mg/dL (NEGATIVE) Urine Ketones NEGATIVE mg/dL mg/dL (NEGATIVE) Urine Occult Blood SMALL H (NEGATIVE) Urine Nitrite NEGATIVE (NEGATIVE) Urine Bilirubin NEGATIVE (NEGATIVE) Urine Urobilinogen 0.2 (NORMAL) E.U./dL E.U./dL (NORMAL) Ur Leukocyte Esterase NEGATIVE (NEGATIVE) Urine RBC None Seen /HPF /HPF (0-5) Urine WBC 0-3 /HPF /HPF (0-5) Ur Squamous Epith Cells RARE Squamous (<= Few) Urine Bacteria None Seen /HPF /HPF (None Seen) Membranes Rupture POSITIVE A (NEGATIVE) - Home Meds/Allergies Allergies pineapple Allergy (Verified 07/01/20 15:52) Edema Home Medications Aspirin [Vazalore] 81 mg PO 09/27/21 [History] - Additional Planning My Orders: My Active Orders 09/27/21 CBC - COMP BLD CT W/AUTO DIFF [HEME] Routine TYPE AND SCREEN Stat 09/27/21 12:47 IV Insert [RC] ONCE Initiate Line Care Protocol [RC] .protocol Vital Signs - OB [RC] .PER PROTOCOL 09/27/21 13:00 Betamethasone [Celestone Soluspan] 12 mg IM Q24H 09/27/21 Dinner Regular Diet [DIET] Additional Planning Notes: Patient accepted for transfer at [place] by Dr. Abad.
[2021-09-27] MEDS ORDERED: BETAMETHASONE 30 MG/5 ML VIAL IM SCH (13:00)
[2021-09-27 13:01] LABS: BACTERIA,URINE None Seen /HPF (None Seen); RBC,URINE None Seen /HPF (0-5); SQUAMOUS EPITHELIAL CELL,UR RARE Squamous (<= Few); WBC,URINE 0-3 /HPF (0-5)
--- NOTE | 2021-09-27 13:28 | Ultrasound Report ---
PROCEDURE: OB Limited INDICATIONS: vaginal bleeding OUTSIDE/PRIOR DATING DATA: Last menstrual period (LMP): 03/26/2021. LMP-based estimated date of delivery (MARGARETTE): 12/31/2021. First dating scan (date and location): 05/27/2021. Estimated date of delivery (MARGARETTE) from first dating scan: 12/26/2021. The below data below was generated using the study generated MARGARETTE of 12/26/2021 TECHNIQUE: Real-time scanning was performed of the fetus, with image documentation. COMPARISON: 08/08/2021, 09/02/2021, 05/27/2021. FINDINGS: A single living intrauterine gestation is present. Presentation: Transverse with head towards maternal left side. Placenta: Placental position is anterior, without previa. Amniotic fluid index: 16.0 cm, normal for gestational age. Largest pocket measures 4.6 cm. heart rate: 143 beats per minutes. Maternal cervical canal: 6.2 cm long; normal length is 2.5 cm or more. Estimated gestational age from initial scan: 27 weeks, 1 day. stomach, chest, bilateral kidneys and urinary bladder are visualized and are within normal limi ts. IMPRESSION: 1. Single live intrauterine with fetus in transverse presentation. head is towards ma ternal left side. 2. heart rate is 143 bpm. Normal amount of amniotic fluid. ARISTEO was 16 cm. 3. Cervix is closed and measures 6.2 cm in length. Placenta location is anterior, no evidence of plac enta previa. Small placental lakes noted involving inferior portion of placenta. No signs of placenta abruption. Reviewed by: Carlton Jon MD on 09/27/2021 1:27 PM PST Approved by: Carlton Jon MD on 09/27/2021 1:27 PM PST Station ID: [id number]
[2021-09-27 13:31] LABS: RUPTURE OF MEMBRANES PLUS POSITIVE (NEGATIVE)
[2021-09-27 14:08] LABS: BASOPHILS % (AUTO) 0.3 %; EOSINOPHILS # (AUTO) 0.1 10^3/uL (0.0-0.7); EOSINOPHILS % (AUTO) 0.7 %; HCT - HEMATOCRIT 36.1 % (37.0-47.0); HGB - HEMOGLOBIN 12.2 g/dL (12.0-16.0); LYMPHOCYTES # (AUTO) 2.3 10^3/uL (1.5-3.5); LYMPHOCYTES % (AUTO) 23.7 %; MEAN CORPUSCULAR HEMOGLOBIN 31.6 pg (27.0-31.0); MEAN CORPUSCULAR HGB CONC 33.8 g/dL (32.0-36.0); MEAN CORPUSCULAR VOLUME 93.5 fL (81.0-99.0); MEAN PLATELET VOLUME 9.9 fL (7.9-10.8); MONOCYTES # (AUTO) 0.6 10^3/uL (0.0-1.0); MONOCYTES % (AUTO) 6.4 %; NEUTROPHILS # (AUTO) 6.6 10^3/uL (1.5-6.6); NEUTROPHILS % (AUTO) 68.3 %; PLT - PLATELET COUNT 318 10^3/uL (130-450); RED BLOOD COUNT 3.86 10^6/uL (4.20-5.40); RED CELL DISTRIBUTION WIDTH 13.3 % (12.0-15.0); WHITE BLOOD COUNT 9.7 x10^3/uL (4.8-10.8)
[2021-09-27] MEDS ORDERED: AZITHROMYCIN 250 MG TABLET PO STA (14:11)
[2021-09-27] MEDS ORDERED: AMPICILLIN 2 GM in SODIUM CHLORIDE 0.9% MINIBAG 100 ML IV SCH (14:30)
[2021-09-27] MEDS ORDERED: fentaNYL 100 MCG/2 ML VIAL ONE (14:49)
[2021-09-27] MEDS ORDERED: KETOROLAC 30 MG/ML VIAL ONE (16:00)
[2021-09-27] MEDS ORDERED: OXYTOCIN 10 UNIT/ML VIAL ONE (16:00)
[2021-09-27] MEDS ORDERED: PHENYLEPHRINE 10 MG/ML VIAL ONE (16:00)
[2021-09-27] MEDS ORDERED: ePHEDrine 50 MG/ML VIAL IVP ONE (16:00)
[2021-09-27] MEDS ORDERED: ONDANSETRON 4 MG/2 ML VIAL ONE (16:00)
[2021-09-27] MEDS ORDERED: MAGNESIUM SULFATE 2 GRAM 2 GM/50 ML BAG IV ONE (17:53)
[2021-09-27] MEDS ORDERED: MAGNESIUM SULFATE 4 GRAM 4 GM/50 ML BAG IV ONE (17:53)
[2021-09-27] MEDS ORDERED: LACTATED RINGERS 1,000 ML IV SCH (18:00)
[2021-09-27 18:49] VITALS: BP 121/71
[2021-09-27] MEDS ORDERED: MAGNESIUM SULFATE IN WATER 20 GM/500 ML IV.SOLN IV ONE (18:51)
[2021-09-27] MEDS ORDERED: MAGNESIUM SULFATE IN WATER 20 GM/500 ML IV.SOLN IV SCH (19:00)
== END 2021-09-27 19:05 | disposition short-term general hospital (02) | DRG 831 ==
LOC: WFO 11:16 → FBP 11:17 → WFO 15:55 → FBP 15:56 → UNDODISIN 18:30
PROVIDERS: ADMIT Obstetrics & Gynecology; ATTEND Obstetrics & Gynecology
DX: O42.912 Preterm premature rupture of membranes, unspecified as to length of time between rupture and onset of labor, second trimester (principal); O44.52 Low lying placenta with hemorrhage, second trimester; Z3A.27 27 weeks gestation of pregnancy; Z79.82 Long term (current) use of aspirin; Z87.891 Personal history of nicotine dependence
CPT/HCPCS: 36415; 76815; 81001; 84112; 85025; 86850; 86900; 86901; 96365; 96367; 96372; 99215; A9270; J7120; 99214; J3475

== ENCOUNTER 2021-10-06 16:46 | Outpatient (CLI) | payer OTHER ==
[2021-10-06 20:52] LABS: BACTERIAL VAGINOSIS DNA NEGATIVE (NEGATIVE); CANDIDA GLABRATA DNA NEGATIVE (NEGATIVE); CANDIDA GROUP DNA NEGATIVE (NEGATIVE); CANDIDA KRUSEI DNA NEGATIVE (NEGATIVE); TRICHOMONAS VAGINALIS DNA NEGATIVE (NEGATIVE)
== END 2021-10-06 16:47 | disposition home or self-care (01) ==
LOC: LAB 16:46
PROVIDERS: ATTEND Nurse Practitioner Obstetrics & Gynecology
DX: N76.0 Acute vaginitis (principal); R30.0 Dysuria
CPT/HCPCS: 87086; 87181; 87661; 87801

== ENCOUNTER 2021-10-17 06:43 | Outpatient (CLI) | payer OTHER ==
--- NOTE | 2021-10-17 09:30 | Ultrasound Report ---
PROCEDURE: OB F/U or Repeat INDICATIONS: SUPERVISION OF OUTSIDE/PRIOR DATING DATA: Last menstrual period (LMP): 03/26/2021. LMP-based estimated date of delivery (MARGARETTE): 12/31/2021. First dating scan (date and location): 05/27/2021. Estimated date of delivery (MARGARETTE) from first dating scan: 12/26/2021. The below data below was generated using the study generated MARGARETTE of 12/26/2021 TECHNIQUE: Real-time scanning was performed of the fetus, with image documentation and biometric measurements. Endovaginal scanning: Not indicated COMPARISON: 05/27/2021 and 08/08/2021 FINDINGS: General: A single living intrauterine gestation is present. Presentation: Variable Placenta: Placental position is anterior, without previa. Low lying placenta is seen with lower edg e of placenta approximately 1.7 cm from internal os. Placental mo is seen measures 9.1 x 1.4 x 3 cm in size Amniotic fluid index: 15.1 cm, normal for gestational age. heart rate: 150 beats per minute. Maternal cervical canal: 7.1 cm long; normal length is 2.5 cm or more. Estimated gestational age from initial scan: 23 weeks, 4 days. Other: facial profile is within normal limits. Four-chamber heart and left ventricular outflow tract is seen and is within normal limits. Right ventricular outflow tract is not well seen on the cu rrent study. chest, stomach, bilateral kidneys and urinary bladder are visualized and are withi n normal limits. IMPRESSION: 1. Single live intrauterine with fetus in variable presentation. heart rate is 150 bp m. Normal amount of amniotic fluid. 2. Low-lying placenta without elvin placenta previa as described above. Sonographic follow-up is jesús mmended. Placental mo as above. 3. facial profile, four-chamber heart and left ventricular outflow tract are visualized and are within normal limits. Right ventricular outflow tract is still not well seen on this study due to fe isael position. Reviewed by: Carlton Jon MD on 10/17/2021 9:29 AM PST Approved by: Carlton Jon MD on 10/17/2021 9:29 AM PST Station ID: [id number]
== END 2021-10-17 06:44 | disposition home or self-care (01) ==
LOC: DI 06:43
PROVIDERS: ATTEND Nurse Practitioner Obstetrics & Gynecology
DX: O09.893 Supervision of other high risk pregnancies, third trimester (principal); O26.843 Uterine size-date discrepancy, third trimester; Z36.89 Encounter for other specified antenatal screening; Z3A.30 30 weeks gestation of pregnancy

== ENCOUNTER 2021-11-01 13:43 | Outpatient (CLI) | payer OTHER ==
[2021-11-01 18:17] LABS: HGB - HEMOGLOBIN 11.6 g/dL (12.0-16.0); MEAN CORPUSCULAR HEMOGLOBIN 30.6 pg (27.0-31.0); MEAN CORPUSCULAR HGB CONC 33.1 g/dL (32.0-36.0); MEAN CORPUSCULAR VOLUME 92.3 fL (81.0-99.0); MEAN PLATELET VOLUME 10.7 fL (7.9-10.8); RED BLOOD COUNT 3.79 10^6/uL (4.20-5.40)
== END 2021-11-01 13:44 | disposition home or self-care (01) ==
LOC: LAB.N 13:43
PROVIDERS: ATTEND Nurse Practitioner Obstetrics & Gynecology
DX: O09.899 Supervision of other high risk pregnancies, unspecified trimester (principal); O99.891 Other specified diseases and conditions complicating pregnancy; R30.0 Dysuria; Z36.89 Encounter for other specified antenatal screening
CPT/HCPCS: 36415; 82950; 85025; 85027; 87086

== ENCOUNTER 2021-11-29 20:57 | Outpatient (CLI) | payer OTHER ==
--- NOTE | 2021-11-30 09:52 | Ultrasound Report ---
PROCEDURE: OB F/U or Repeat INDICATIONS: UTERINE SIZE DATE DISCREPANCY OUTSIDE/PRIOR DATING DATA: Last menstrual period (LMP): 03/26/2021. LMP-based estimated date of delivery (MARGARETTE): 12/31/2021. First dating scan (date and location): 05/27/2021. Ash[place]osh. Estimated date of delivery (MARGARETTE) from first dating scan: 12/26/2021. The below data below was generated using the ultrasound MARGARETTE of 12/26/2021 TECHNIQUE: Real-time scanning was performed of the fetus, with image documentation and biometric measurements. COMPARISON: None. FINDINGS: General: A single living intrauterine gestation is present. Presentation: Vertex Placenta: Placental position is anterior, without previa. The inferior tip of the placenta is 3.9 c m from the internal os. Placental lakes are again noted. Amniotic fluid index: 10.3 cm, normal for gestational age. Largest pocket 4.8 cm. heart rate: 124 beats per minute. Maternal cervical canal: Not identified. biometrics: Biparietal diameter: 8.7 cm. 35 weeks 4 days. Head circumference: 32.7 cm. 37 weeks 1 day. Abdominal circumference: 33.5 cm. 37 weeks 3 days. Femur length: 7.18 cm. 36 weeks 5 days. Estimated gestational age from initial scan: 36 weeks 1 day. Composite gestational age from present scan: 36 weeks 5 days Estimated weight and percentile: 3085 g. 74.8 percentile. Measurement variability in biometric dating: +/- 10 days from 12-20 weeks gestation, +/- 2 weeks from 20-30 weeks gestation, +/- 3 weeks at 30 weeks gestation or more. anatomy: The chest/diaphragm, stomach/abdomen, right renal region, left renal region, and urina ry bladder/pelvis have a normal appearance. Other anatomy was not visualized. IMPRESSION: 1. 36 week 1 day gestation with an estimated weight of 3085 g, 74.8 percentile. 2. Unable to determine the length of the cervical canal on today's exam due to late gestational age a nd vertex presentation. Reviewed by: Domo Dinh on 11/30/2021 9:50 AM PDT Approved by: Domo Dinh on 11/30/2021 9:50 AM PDT Station ID: [id number]
== END 2021-11-29 20:58 | disposition home or self-care (01) ==
LOC: DI 20:57
PROVIDERS: ATTEND Nurse Practitioner Obstetrics & Gynecology
DX: O26.843 Uterine size-date discrepancy, third trimester (principal); O44.43 Low lying placenta NOS or without hemorrhage, third trimester; Z3A.36 36 weeks gestation of pregnancy

== ENCOUNTER 2021-12-06 14:03 | Outpatient (CLI) | payer OTHER ==
[2021-12-06] MEDS ORDERED: TERBUTALINE 1 MG/ML VIAL SUBQ PRN (14:29)
[2021-12-06] MEDS ORDERED: fentaNYL 100 MCG/2 ML VIAL IVP PRN (14:29)
[2021-12-06] MEDS ORDERED: ONDANSETRON 4 MG/2 ML VIAL IVP PRN (14:29)
[2021-12-06 14:32] VITALS: BP 145/80
[2021-12-06] MEDS ORDERED: MINERAL OIL LIGHT 10 ML TOP SCH (15:00)
--- NOTE | 2021-12-15 16:41 | PROCEDURE REPORT ---
- HPI Diagnosis/Indication for NST: Other (pre-procedural assessment/ breech presentation) Current EDU 12/26/21 Gestation 37 Weeks and 1 Days 2 Para 1 Vital Signs Temperature 97.7 F 12/06/21 14:30 Heart Rate 82 12/06/21 14:30 Respiratory Rate 18 12/06/21 14:30 Blood Pressure 145/80 H 12/06/21 14:30 Temperature 97.7 F 12/06/21 14:31 Heart Rate 82 12/06/21 14:31 Respiratory Rate 18 12/06/21 14:31 Blood Pressure 145/80 H 12/06/21 14:31 O2 Saturation 97 12/06/21 14:31 - NST Procedure NST Procedure Start Date 12/06/21 Start Time 14:22 Stop Time 15:01 Vibroacoustic Stimulation Used No Patient States Movement Yes EFM 130 mod zachary 15x15 accels no decels TOCO: quiet - Results and Plan Findings/Impression: Patient is a 26 yo at 37+1 wga with a fetus in breech presentation her for planned ECV Patient underwent pre-procedural NST NST showed Cat I tracing Pre-procedural bedside US showed fetus to be in vertex presentation. ECV cancelled Patient is to follow up with primary OB provider DOS: 12/06/21 NSTread 12/06/21
== END 2021-12-06 16:30 | disposition home or self-care (01) ==
LOC: WFO 14:03 → FBP 14:10 → WFO 16:30
PROVIDERS: ATTEND Obstetrics & Gynecology
DX: O32.1XX0 Maternal care for breech presentation, not applicable or unspecified (principal); Z3A.37 37 weeks gestation of pregnancy
CPT/HCPCS: 59025

== ENCOUNTER 2021-12-25 08:07 | Inpatient (IN) | payer OTHER ==
[2021-12-25 09:38] LABS: BASOPHILS % (AUTO) 0.5 %; EOSINOPHILS # (AUTO) 0.1 10^3/uL (0.0-0.7); EOSINOPHILS % (AUTO) 0.7 %; HCT - HEMATOCRIT 34.9 % (37.0-47.0); HGB - HEMOGLOBIN 11.4 g/dL (12.0-16.0); LYMPHOCYTES # (AUTO) 2.3 10^3/uL (1.5-3.5); LYMPHOCYTES % (AUTO) 27.5 %; MEAN CORPUSCULAR HEMOGLOBIN 29.2 pg (27.0-31.0); MEAN CORPUSCULAR HGB CONC 32.7 g/dL (32.0-36.0); MEAN CORPUSCULAR VOLUME 89.3 fL (81.0-99.0); MEAN PLATELET VOLUME 10.8 fL (7.9-10.8); MONOCYTES # (AUTO) 0.6 10^3/uL (0.0-1.0); MONOCYTES % (AUTO) 6.8 %; NEUTROPHILS # (AUTO) 5.3 10^3/uL (1.5-6.6); NEUTROPHILS % (AUTO) 63.2 %; PLT - PLATELET COUNT 327 10^3/uL (130-450); RED BLOOD COUNT 3.91 10^6/uL (4.20-5.40); RED CELL DISTRIBUTION WIDTH 13.5 % (12.0-15.0); WHITE BLOOD COUNT 8.4 x10^3/uL (4.8-10.8)
[2021-12-25 09:49] LABS: ALBUMIN 2.9 g/dL (3.2-5.5); ALBUMIN/GLOBULIN RATIO 0.7 (1.0-2.2); BILIRUBIN,TOTAL 0.5 mg/dL (0.2-1.0); CALCIUM 9.1 mg/dL (8.5-10.3); CREATININE 0.6 mg/dL (0.4-1.0); POTASSIUM 3.3 mmol/L (3.5-5.0); TOTAL PROTEIN 6.9 g/dL (6.7-8.2)
[2021-12-25] MEDS ORDERED: fentaNYL 100 MCG/2 ML VIAL IVP PRN ×2 (09:53→19:54)
[2021-12-25] MEDS ORDERED: CARBOPROST TROMETHAMINE 250 MCG/ML AMP IM PRN (09:53)
[2021-12-25] MEDS ORDERED: TRANEXAMIC ACID IN NACL 1,000 MG/100 ML BAG IV PRN (09:53)
[2021-12-25] MEDS ORDERED: SODIUM CHLORIDE FLUSH 0.9% 10 ML SYRINGE IVP PRN (09:53)
[2021-12-25] MEDS ORDERED: LIDOCAINE-MPF 1% 30 ML VIAL ID PRN (09:53)
[2021-12-25] MEDS ORDERED: LABETALOL 20 MG/4 ML SYRINGE IVP PRN ×3 (09:53)
[2021-12-25] MEDS ORDERED: NIFEdipine 10 MG CAPSULE PO PRN (09:53)
[2021-12-25] MEDS ORDERED: hydrALAZINE INJ 20 MG/ML VIAL IVP PRN ×2 (09:53)
[2021-12-25] MEDS ORDERED: METHYLERGONOVINE 0.2 MG/ML VIAL IM PRN (09:53)
[2021-12-25] MEDS ORDERED: TERBUTALINE 1 MG/ML VIAL SUBQ PRN (09:53)
[2021-12-25] MEDS ORDERED: miSOPROStoL 200 MCG TABLET BC PRN (09:53)
[2021-12-25] MEDS ORDERED: OXYTOCIN 10 UNIT/ML VIAL IM PRN (09:53)
[2021-12-25] MEDS ORDERED: OXYTOCIN/SODIUM CHLORIDE 500 ML IV PRN ×2 (09:53→21:52)
--- NOTE | 2021-12-25 09:56 | HISTORY & PHYSICAL EXAMINATION ---
Admit History - Visit Reason Visit Reason: Other - : 2 Parity: 1 Premature: 0 Ectopic: 0 : 0 Care: positive: Re Midwif[facility] Risk/History: positive: None, induced HTN Complications This : positive: induced HTN Smoking Status: Never smoker - Mother's Labs Mother's Blood Type: positive: O Mother's RH: positive: Positive GBS: positive: Group B Step Negative Rubella Status: positive: Immune Meds/Allgy - Home Medications Home Medications: Ambulatory Orders Medication Instructions Recorded Confirmed Aspirin [Vazalore] 81 mg PO 09/27/21 - Allergies Allergies/Adverse Reactions: Allergies Allergy/AdvReac Type Severity Reaction Status Date / Time pineapple Allergy Edema Verified 07/01/20 15:52 Review of Systems - Constitutional Constitutional: denies: Fatigue, Fever, Chills, Malaise - Eyes Eyes: denies: Blurred vision, Spots in vision, Dipolpia - Cardiovascular Cariovascular: denies: Irregular heart rate, Palpitations, Chest pain - Respiratory Respiratory: denies: Cough, Wheezing, SOB at rest - Gastrointestinal Gastrointestinal: denies: Abdominal pain, Constipation, Diarrhea, Nausea, Vomiting - Integumentary Integumentary: denies: Rash, Pruritis - Neurological Neurological: denies: Headache - Psychiatric Psychiatric: denies: Depression, Anxiety - Hematologic/Lymphatic Hematologic/Lymphatic: denies: Anemia Physical - Abdominal Exam Vital Signs: Temp Pulse Resp BP Pulse Ox 36.8 C 107 H 18 147/90 H 12/25/21 08:33 12/25/21 08:33 12/25/21 08:33 12/25/21 08:33 Contraction Intensity: positive: Mild Uterine Resting Tone: positive: Soft - Monitoring Heart Rate Baseline: 135 Strip Review: positive: Category I - Presentation Presentation: positive: Vertex - Vaginal Exam Membranes: positive: Membranes intact Dilation (in cm): 1 Effacement (%): 25 Station: positive: -3 Cervical Position: positive: Posterior - Speculum Exam Speculum Exam Performed: positive: No Plan for Labor - Plan For Labor I expect patient to be DC'd or transferred within 96 hours.: Yes Plan for Labor: HPI: Jessica is a 26yo @ 39.6wks gestation who presents to [facility] for induction of labor secondary to her hx of gestational hypertension. She has taken a baby aspirin daily since the beginning of her second trimester and her BPs have remained WNL with the exception of one elevated blood pressure in the office at 38wks. Her labs at that time were WNL. Upon arrival her cervix was noted to be 1/25/-3, posterior and vertex. She denies vaginal bleeding, leakage of fluid or contractions. She denies BERMUDEZ, visual disturbances, RUQ or epigastric pain. She has been a patient of [facility] in [place] since her transfer of care from [facility] at 32wks gestation. She was under my care for the duration of her . Her has been complicated by second trimester bleeding and +ROM plus which was managed at [facility]. S/p BMZ x 2, ampicillin 2gm IV and azithromycin 1000mgPO. In addition she was noted to be breech presentation at 36wks gestation however she was scheduled for a ECV and at the time of that appt she was noted to be vertex again. Dating criteria: LMP 03/26/2021 (unsure) Initial U/S @ 9.4wks 5 days different than LMP - secondary to unsure LMP dating, FINAL MARGARETTE 12/26/2021 Serial exams - agree OB Hx: G1: 07/06/2020 @ 38wks gestation. Epidural. Intact. Male [id number]. Gestational hypertension G2: Current PMHx: Abnormal pap smeal (LSIL) 12/2019 Surgical Hx: Breast lumpectomy (2009), Otoplasty (2001), Strum tooth extraction Social Hx: Former smoker. No ETOH or IVDA. 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 Secondary to unsure LMP, will use U/S MARGARETTE 12/26/2021 FINAL MARGARETTE 12/26/2021 O positive, rubella immune VZV: Equivocal Genetic testing: Quad screen - neg FAS: SLIUP> anatomic survey limited secondary to suboptimal view. Anatomy seen was WNL. Low-lying placenta 1.7cm from cervical os. Multiple prominent venous lakes in the placenta indeterminate significance. Recommend f/u. Placental venous lakes - MFM consult completed F/u U/S 09/02/2021: Completion FAS WNL. Continued lo-lying placenta and stable appearance of placental venous lakes. MFM consult initiated. F/u U/S 10/17/2021 -Low lying placenta - resolved Glucola 86 Influenza vaccine: 06/06 Tdap given 09/26 Covid vaccine: declined GBS neg @ 36wks HSV: denies in self and partner Physical Exam: Normocephalic, atraumatic HEart RRR w/o M/G/r Lungs CTAB Abdomen gravid, soft, nontender FHR baseline 135, moderate variability, + accels, no decels No contractions appreciated via tocometry SVE 09/12/-3, posterior. Vertex. Intact membranes Bilateral LE's trace edema Mood is good Assessment: 26yo @ 39.6wks gestation by 9.4wk U/S GBS neg FHR Category I Gestational hypertension Plan: Place in observation status for induction of labor. Placement of taylor cervical ripening balloon. Misoprostol 50mcg BC misoprostl q 4hrs for preinduction cervical ripening Jacuzzi PRN. Nitrous oxide PRN. Encouraged ambulation and position changes. Anticipate .
[2021-12-25] MEDS ORDERED: SODIUM CHLORIDE FLUSH 0.9% 10 ML SYRINGE IVP SCH (10:00)
[2021-12-25] MEDS: miSOPROStoL 100 MCG TABLET BC SCH ×2 (10:47→14:46)
[2021-12-25] MEDS ORDERED: LACTATED RINGERS 1,000 ML IV SCH ×3 (11:00→22:00)
[2021-12-25] MEDS ORDERED: OXYTOCIN/SODIUM CHLORIDE 500 ML IV SCH (19:00)
--- NOTE | 2021-12-25 19:48 | PROVIDER PROGRESS NOTE ---
Labor Progress Note - Uterine Monitoring Uterine Monitoring Mode: positive: External toco Contraction Intensity: positive: Mild Uterine Resting Tone: positive: Soft - Monitoring Monitor Mode: positive: External ultrasound Heart Rate Baseline: 135 Heart Rate Variability: positive: Moderate (6-25 bmp) Accelerations: positive: Present, 15x15 Decelerations: positive: None Strip Review: positive: Category I - Vaginal Exam Dilation (in cm): 1 Effacement (%): 25 Station: -3 Cervical Position: Posterior - Labor Progress Note Labor Progress Note/Additional Text: SVE 09/12/-3, posterior. Vertex. 60cc NS in uterine balloon 60cc NS in vaginal balloon. Pt tolerated well.
--- NOTE | 2021-12-25 19:50 | MISCELLANEOUS PROVIDER NOTE ---
Miscellaneous Provider Note - - Note: Called to see patient for evaluation for section secondary to breech presentation. This is a 26-year-old at 39 and 6 days with a history of gestational hypertension admitted for induction of labor. The patient received misoprostol and Hilliard bulb for cervical ripening. Following Hilliard bulb, cervical exam was performed by the emulsion operator and the patient was found to be 4 to 5 cm with malpresentation. I evaluated the patient at the bedside with bedside ultrasound and found the baby to be transverse, back up with head to maternal left. The patient was counseled regarding the risk of section which include the risk of bleeding infection and damage to surrounding organs requiring additional surgery. She was also counseled about the risk of hysterectomy. She agreed to section secondary to malpresentation in labor. All questions and concerns were addressed and consent signed. Plan for primary section for malpresentation.
--- NOTE | 2021-12-25 19:53 | ANESTHESIA ---
Pre-Anesthesia VS, & Labs - Diagnosis breech presentation - Procedure primary c/s Vital Signs: Temp Pulse Resp BP Pulse Ox 36.8 C 107 H 18 147/90 H 12/25/21 08:33 12/25/21 08:33 12/25/21 08:33 12/25/21 08:33 Height: 5 ft 4 in Weight (kg): 123.831 kg Body Mass Index: 46.8 BMI Classification: Morbidly Obese - NPO Last Food Intake: 1700 full meal - Is Patient ?: Yes - Lab Results Current Lab Results: Laboratory Tests 12/25/21 08:55: Blood Type O POSITIVE, Antibody Screen NEGATIVE 12/25/21 08:55: Sodium 135, Potassium 3.3 L, Chloride 104, Carbon Dioxide 20 L, Anion Gap 11.0, BUN 11, Creatinine 0.6, Estimated GFR (MDRD) 119, Glucose 105 H, Calcium 9.1, Total Bilirubin 0.5, AST 23, ALT 17, Alkaline Phosphatase 151 H, Total Protein 6.9, Albumin 2.9 L, Globulin 4.0, Albumin/Globulin Ratio 0.7 L 12/25/21 08:55: WBC 8.4, RBC 3.91 L, Hgb 11.4 L, Hct 34.9 L, MCV 89.3, MCH 29.2, MCHC 32.7, RDW 13.5, Plt Count 327, MPV 10.8, Neut # (Auto) 5.3, Lymph # (Auto) 2.3, [place] # (Auto) 0.6, Eos # (Auto) 0.1, Baso # (Auto) 0.0, Absolute Nucleated RBC 0.00, Nucleated RBC % 0.0 Fish Bones: 12/25/21 08:55 12/25/21 08:55 Home Medications and Allergies Active Medications Carboprost Tromethamine (Carboprost Tromethamine 250 Mcg/Ml Amp) 250 mcg IM .ONCE PRN PRN Reason: Hemorrhage Fentanyl (Fentanyl 100 Mcg/2 Ml Vial) 50 mcg IVP Q1H PRN PRN Reason: Severe Pain (score 7-10) Last Admin: 12/25/21 10:27 Dose: 50 mcg Hydralazine HCl (Hydralazine Inj 20 Mg/Ml Vial) 5 - 20 mg IVP Q20M PRN; Protocol PRN Reason: SBP> or= 160 OR DBP> or= 110 Hydralazine HCl (Hydralazine Inj 20 Mg/Ml Vial) 10 mg IVP .ONCE PRN; Protocol PRN Reason: SBP> or= 160 OR DBP> or= 110 Oxytocin/Sodium Chloride (Pitocin/Sodium Chloride) 500 mls @ 999 mls/hr IV PRN PRN; Protocol PRN Reason: POST- HEMORR PREVENTION Tranexamic Acid (Tranexamic 1,000 Mg/100ml-Nacl) 1,000 mg in 100 mls @ 600 mls/hr IV Q30M PRN PRN Reason: EBL >1200mL and within 3hr Lactated Ringer's (Lr) 1,000 mls @ 125 mls/hr IV .Q8H [facility] Last Admin: 12/25/21 14:46 Dose: Not Given Oxytocin/Sodium Chloride (Pitocin/Sodium Chloride) 500 mls @ 2 mls/hr IV TITR GORDO; Protocol Labetalol HCl (Labetalol 20 Mg/4 Ml Syringe) 20 - 80 mg IVP Q10M PRN; Protocol PRN Reason: SBP> or= 160 OR DBP> or= 110 Labetalol HCl (Labetalol 20 Mg/4 Ml Syringe) 20 mg IVP .ONCE PRN; Protocol PRN Reason: SBP> or= 160 OR DBP> or= 110 Labetalol HCl (Labetalol 20 Mg/4 Ml Syringe) 20 - 40 mg IVP Q10M PRN; Protocol PRN Reason: SBP> or= 160 OR DBP> or= 110 Lidocaine HCl (Lidocaine-Mpf 1% 30 Ml Vial) 30 ml ID ONCE PRN PRN Reason: PERINEAL REPAIR Stop: 12/26/21 09:53 Methylergonovine Maleate (Methylergonovine 0.2 Mg/Ml Vial) 0.2 mg IM .ONCE PRN PRN Reason: Hemorrhage Misoprostol (Misoprostol 200 Mcg Tablet) 800 mcg BC .ONCE PRN PRN Reason: Hemorrhage Misoprostol (Misoprostol 100 Mcg Tablet) 50 mcg BC Q4H [facility] Last Admin: 12/25/21 14:46 Dose: 50 mcg Nifedipine (Nifedipine 10 Mg Capsule) 10 - 20 mg PO Q20M PRN; Protocol PRN Reason: SBP> or= 160 OR DBP> or= 110 Oxytocin (Oxytocin 10 Unit/Ml Vial) 10 unit IM .ONCE PRN PRN Reason: Step One if no IV access. Sodium Chloride (Sodium Chloride Flush 0.9% 10 Ml Syringe) 10 ml IVP PRN PRN PRN Reason: NEEDED PER PROVIDER ORDERS Sodium Chloride (Sodium Chloride Flush 0.9% 10 Ml Syringe) 10 ml IVP Q8H GORDO Last Admin: 12/25/21 14:46 Dose: Not Given Terbutaline Sulfate (Terbutaline 1 Mg/Ml Vial) 0.25 mg SUBQ .ONCE PRN PRN Reason: Tachystole Aspirin [Vazalore] 81 mg PO 09/27/21 Allergies/Adverse Reactions: Allergies Allergy/AdvReac Type Severity Reaction Status Date / Time pineapple Allergy Edema Verified 07/01/20 15:52 Anes History & Medical History - Anesthetic History Anesthesia Complications: reports: No previous complications - Medical History Cardiovascular: reports: None Pulmonary: reports: None Gastrointestinal: reports: GERD Urinary: reports: None Neuro: reports: None Musculoskeletal: reports: Scoliosis Endocrine/Autoimmune: reports: None Blood Disorders: reports: None Skin: reports: None Smoking Status: Never smoker Psychosocial: reports: No issues indicated History of Cancer?: No - Surgical History Gynecologic: reports: Other - Obstetrical History : 2 Parity: 1 Events: reports: None, induced HTN Complications: reports: induced HTN Exam General: Alert, Oriented x3, Cooperative, No acute distress Dental: WNL Mouth Openin Fingerbreadth Neck Mobility: Normal Mallampati classification: I Thyromental Distance: greater than 6 cm Mental/Cognitive Status: Alert/Oriented X3, Normal for patient Cognitive Status: Within normal limits Plan Anesthesia Type: Spinal Consent for Procedure(s) Verified and Reviewed: Yes Code Status: Attempt Resuscitation ASA classification: 2-Mild systemic disease Is this case an emergency?: No
--- NOTE | 2021-12-25 19:53 | PROVIDER PROGRESS NOTE ---
Labor Progress Note - Uterine Monitoring Uterine Monitoring Mode: positive: External toco Contraction Frequency (min/apart): intermittent Contraction Intensity: positive: Mild Uterine Resting Tone: positive: Soft - Monitoring Monitor Mode: positive: External ultrasound Heart Rate Baseline: 135 Heart Rate Variability: positive: Moderate (6-25 bmp) Accelerations: positive: Present, 15x15 Decelerations: positive: None Strip Review: positive: Category I - Vaginal Exam Dilation (in cm): 4-5 Effacement (%): 50 Station: -3 Cervical Position: Posterior - Labor Progress Note Labor Progress Note/Additional Text: S: Pt not feeling the contractions. She states she can tell she has occasional abdominal tightening but nothing overly uncomfortable. She denies BERMUDEZ, visual disturbances, RUQ or epigastric pain. She states overall she is feeling well. Her Red is supportive at the bedside. O: FHR baseline 135, moderate variability, + accels, no decels Contractions palpate mild intermittently with soft resting tone SVE 4-5/50/-3, posterior. Footing breech presentation with head confirmed occiput maternal upper left. Confirmed with BSUS. A: 26yo @ 39.6wks gestation Breech presentation Gestational hypertension GBS neg FHR Category I P: call center professional physician notified to present for evaluation and delivery. OR team notified to present. Continuous monitoring. Anticipate delivery. Pt verbalized understanding and agrees to above plan. Although nervous she knows this is the most appropriate course of action now. She denies further questions or concerns at this time.
[2021-12-25] MEDS ORDERED: HYDROmorphone 0.5 MG/0.5 ML SYRINGE IVP PRN (19:54)
[2021-12-25] MEDS ORDERED: ATROPINE ABBOJECT 1 MG/10 ML SYRINGE IVP PRN (19:54)
[2021-12-25] MEDS ORDERED: ONDANSETRON 4 MG/2 ML VIAL IVP PRN (19:54)
[2021-12-25] MEDS ORDERED: NALOXONE 0.4 MG/ML VIAL IVP PRN ×2 (19:54→21:52)
[2021-12-25] MEDS ORDERED: MORPHINE 2 MG/ML CARPUJECT IVP PRN (19:54)
[2021-12-25] MEDS ORDERED: CITRIC ACID/SODIUM CITRATE 15 ML UDC PO ONE (19:58)
[2021-12-25] MEDS ORDERED: ceFAZolin 1 GM VIAL ONE (20:11)
[2021-12-25] MEDS ORDERED: fentaNYL 100 MCG/2 ML VIAL ONE (20:14)
[2021-12-25] MEDS ORDERED: PHENYLEPHRINE 10 MG/ML VIAL ONE (20:14)
[2021-12-25] MEDS ORDERED: OXYTOCIN 10 UNIT/ML VIAL ONE (20:14)
[2021-12-25] MEDS ORDERED: MORPHINE PF 5 MG/10 ML VIAL ONE (20:14)
[2021-12-25] MEDS ORDERED: miSOPROStoL 200 MCG TABLET ONE (20:20)
[2021-12-25] MEDS ORDERED: METHYLERGONOVINE 0.2 MG/ML VIAL ONE (20:21)
[2021-12-25] MEDS ORDERED: CARBOPROST TROMETHAMINE 250 MCG/ML AMP IM ONE (20:21)
[2021-12-25] MEDS ORDERED: ONDANSETRON 4 MG/2 ML VIAL ONE (20:43)
[2021-12-25] MEDS ORDERED: KETOROLAC 30 MG/ML VIAL ONE (21:43)
[2021-12-25] MEDS ORDERED: LACTATED RINGERS 1,000 ML IV ONE (21:49)
[2021-12-25] MEDS ORDERED: diphenhydrAMINE INJ 50 MG/ML VIAL IVP PRN (21:52)
--- NOTE | 2021-12-25 22:07 | ANESTHESIA POST OP EVALUATION ---
Anesthesia Post Eval - Post Anesthesia Eval Vitals: Last Vital Signs Temp 36.8 C 12/25/21 08:33 Pulse 107 H 12/25/21 08:33 Resp 18 12/25/21 08:33 BP 147/90 H 12/25/21 08:33 Pulse Ox CV Function Including HR & BP: Stable Pain Control: Satisfactory Nausea & Vomiting: Negative Mental Status: Baseline Respiratory Status: Airway Patent Hydration Status: Satisfactory Anesthesia Complications: None
--- NOTE | 2021-12-25 22:08 | DELIVERY NOTE ---
Delivery Note - Labor Labor: positive: Other (induction of labor) - Delivery Method Delivery Method: positive: Primary - Cervical Ripening Method Cervical Ripening Method: positive: Balloon device, Misoprostil - Presentation Presentation: positive: Transverse - Nuchal Cord Nuchal Cord: positive: None - Anesthetic Anesthetic Type: - Amniotic Fluid Description Amniotic Fluid Description: positive: Clear - Delivery Outcome Delivery Outcome: positive: Livebirth - Industry Industry: positive: Bulb syringe, Stimulated sex: positive: Female - Placenta Placenta: positive: Intact - Estimated Blood Loss Estimated Blood Loss (in cc): 800 - Post Delivery Events Post Delivery Events: positive: No post delivery events - Delivery Comments (Free Text/Narrative) Delivery Comments (Free Text/Narrative): The patient was taken to surgery secondary to malpresentation. Following informed consent the patient was taken to the operating room. She was placed on supine position. Epidural anesthesia was appropriately dosed for surgery. A Pfannenstiel incision was made sharply and taken down to the level of the fascia. The fascia was incised in the midline. The fascia was from the rectus muscle superiorly and inferiorly. The rectus muscle was at the midline. The peritoneal cavity was entered bluntly with care taken to avoid injury to underlying structures. An Juanito retractor was placed. The baby was found to be in transverse position with the head to the maternal left. The head was gently brought to the lower uterine segment. A bladder flap was created sharply with care taken to avoid injury to the bladder. A low transverse hysterotomy was made sharply. The hysterotomy was extended lateral and superiorly with digits. The head was brought through the hysterotomy and the baby delivered cephalic. The baby was vigorous at delivery. Cord clamping was delayed for approximately 30 seconds. The oropharynx was suctioned. The cord was doubly clamped and cut and the baby passed on to the awaiting picking machine operator. A cord segment was obtained for cord gases. Cord blood was obtained. The placenta was delivered with fundal massage. The fundus was noted to be firm. The hysterotomy was closed using chromic suture in a continuous locking fashion. Hemostasis was assured with suture ligation. The peritoneal cavity was copiously irrigated. All instruments were removed. The fascia was closed using PDS suture. The skin was closed using Monocryl and dressed with Mastisol and Steri-Strips. The patient remained in stable condition.
--- NOTE | 2021-12-25 22:11 | OPERATIVE REPORT ---
Operative Report - General Admit Date: 12/25/21 Pre-Op Diagnosis: 39 weeks gestation, gestational hypertension, malpresentation Procedure Performed: Primary low-transverse section Post Op Diagnosis: Same - Procedure Note Primary Surgeon: Megha Monge MD Secondary Surgeon: Sherin Boykin Anesthesia Provider: Kecia Rubi Anesthesia Technique: Epidural Estimated Blood Loss (mL): 800 Indications: malpresentation Findings: normal appearing uterus, bilateral fallopian tubes and ovaries Complications: none - Other Other Information/Narrative: The patient was taken to surgery secondary to malpresentation. Following informed consent the patient was taken to the operating room. She was placed on supine position. Epidural anesthesia was appropriately dosed for surgery. A Pfannenstiel incision was made sharply and taken down to the level of the fascia. The fascia was incised in the midline. The fascia was from the rectus muscle superiorly and inferiorly. The rectus muscle was at the midline. The peritoneal cavity was entered bluntly with care taken to avoid injury to underlying structures. An Juanito retractor was placed. The baby was found to be in transverse position with the head to the maternal left. The head was gently brought to the lower uterine segment. A bladder flap was created sharply with care taken to avoid injury to the bladder. A low transverse hysterotomy was made sharply. The hysterotomy was extended lateral and superiorly with digits. The head was brought through the hysterotomy and the ba by delivered cephalic. The baby was vigorous at delivery. Cord clamping was delayed for approximately 30 seconds. The oropharynx was suctioned. The cord was doubly clamped and cut and the baby passed on to the awaiting interior surface insulation worker. A cord segment was obtained for cord gases. Cord blood was obtained. The placenta was delivered with fundal massage. The fundus was noted to be firm. The hysterotomy was closed using chromic suture in a continuous locking fashion. Hemostasis was assured with suture ligation. The peritoneal cavity was copiously irrigated. All instruments were removed. The fascia was closed using PDS suture. The skin was closed using Monocryl and dressed with Mastisol and Steri-Strips. The patient remained in stable condition. APGARS - 8 at 1 minute and 9 at 5 minutes Sherin Boykin assisted with this procedure by retracting instruments and facilitating visualization to assure safe completion of the procedure.
[2021-12-25 22:16] LABS: CORD ARTERIAL BLOOD PH 7.266; CORD VENOUS BLD PO2 22.3; CORD VENOUS BLOOD BASE EXCESS -3.4; CORD VENOUS BLOOD HCO3 21.7; CORD VENOUS BLOOD OXYGEN SAT 49.6; CORD VENOUS BLOOD PCO2 39.3; CORD VENOUS BLOOD PH 7.36; CORD VENOUS BLOOD TOTAL CO2 22.9
[2021-12-25 22:17] LABS: CORD ARTERIAL BLD BASE EXCESS -1.4; CORD ARTERIAL BLOOD HCO3 26.7; CORD ARTERIAL BLOOD TOTAL CO2 28.5
[2021-12-26] MEDS: ACETAMINOPHEN 500 MG TABLET PO SCH ×3 (01:00→17:33)
[2021-12-26] MEDS: oxyCODONE 5 MG TABLET PO PRN ×3 (01:00→21:37)
[2021-12-26] MEDS: KETOROLAC 30 MG/ML VIAL IVP SCH ×3 (03:33→15:51)
[2021-12-26] MEDS ORDERED: NALBUPHINE 10 MG/ML AMP IVP ONE (04:11)
[2021-12-26 05:26] LABS: HCT - HEMATOCRIT 28.2 % (37.0-47.0); HGB - HEMOGLOBIN 9.4 g/dL (12.0-16.0); MEAN CORPUSCULAR HEMOGLOBIN 29.9 pg (27.0-31.0); MEAN CORPUSCULAR HGB CONC 33.3 g/dL (32.0-36.0); MEAN CORPUSCULAR VOLUME 89.8 fL (81.0-99.0); MEAN PLATELET VOLUME 10.5 fL (7.9-10.8); RED BLOOD COUNT 3.14 10^6/uL (4.20-5.40); RED CELL DISTRIBUTION WIDTH 13.7 % (12.0-15.0); WHITE BLOOD COUNT 12.9 x10^3/uL (4.8-10.8)
[2021-12-26] MEDS: DOCUSATE SODIUM 100 MG CAPSULE PO SCH ×2 (09:37→21:37)
[2021-12-26] MEDS ORDERED: FERROUS SULFATE 325 MG TABLET PO SCH (13:00)
--- NOTE | 2021-12-26 14:58 | PROVIDER PROGRESS NOTE ---
Subjective - Prog Note Date Prog Note Date: 12/26/21 Prog Note Time: 14:51 - Subjective Pt reports feeling: Improved Subjective: Patient has no complaints. Her pain is controlled with pain medications. She is tolerating a regular diet. Current Medications - Current Medications Current Medications: Active Medications Generic Name Dose Route Start Last Admin Trade Name Freq PRN Reason Stop Dose Admin Acetaminophen 1,000 mg 12/25/21 22:00 12/26/21 09:37 Acetaminophen 500 Mg Tablet PO 1,000 mg Q8H GORDO Administration Diphenhydramine HCl 25 mg 12/25/21 21:52 12/26/21 01:00 Diphenhydramine Inj 50 Mg/Ml Vial IVP 25 mg Q6H PRN Administration Allergy Symptoms Docusate Sodium 200 mg 12/26/21 09:00 12/26/21 09:37 Docusate Sodium 100 Mg Capsule PO 200 mg BID GORDO Administration Ferrous Sulfate 325 mg 12/26/21 13:00 Ferrous Sulfate 325 Mg Tablet PO DAILYWM [facility]ORD[facility] Lactated Ringer's 1,000 mls @ 100 mls/hr 12/25/21 22:00 12/26/21 04:19 Lr IV 100 mls/hr .Q10H [facility] Administration Oxytocin/Sodium Chloride 500 mls @ 999 mls/hr 12/25/21 21:52 Pitocin/Sodium Chloride IV PRN PRN POST- HEMORR PREVENTION Protocol 999 MILLIUNIT/MIN Ibuprofen 600 mg 12/26/21 00:00 Ibuprofen 600 Mg Tablet PO Q6HR GORDO Ketorolac Tromethamine 30 mg 12/26/21 04:00 12/26/21 09:36 Ketorolac 30 Mg/Ml Vial IVP 12/26/21 22:01 30 mg Q6H GORDO Administration Naloxone HCl 0.4 mg 12/25/21 21:52 Naloxone 0.4 Mg/Ml Vial IVP .ONCE PRN Opioid overdose Oxycodone HCl 5 mg 12/25/21 21:52 12/26/21 01:00 Oxycodone 5 Mg Tablet PO 5 mg Q4HR PRN Administration Severe Pain 6 -10 Aspirin [Vazalore] 81 mg PO 09/27/21 Objective - Vital Signs/Intake & Output Reviewed Vital Signs: Yes Vital Signs: Vital Signs x48h Temp Pulse Resp BP Pulse Ox 12/26/21 12:09 97.9 F 60 18 126/69 97 12/26/21 08:00 98.4 F 64 20 116/68 100 Intake & Output: Intake & Output 12/23/21 12/24/21 12/25/21 12/26/21 23:59 23:59 23:59 23:59 Intake Total 550 Output Total 30 7805 Balance -30 -3679 - Objective General Appearance: positive: No acute distress Respiratory: positive: No respiratory distress Abdomen: positive: Non-tender, No distention, Tenderness, Other (Bandage in place.) Extremities: positive: Non-tender, Calf tenderness - Lab Results Fish Bones: 12/26/21 05:12 12/25/21 08:55 Other Labs: Lab Results x24hrs 12/26/21 12/25/21 12/25/21 Range/Units 05:12 21:00 21:00 WBC 12.9 H (4.8-10.8) x10^3/uL RBC 3.14 L (4.20-5.40) 10^6/uL Hgb 9.4 L (12.0-16.0) g/dL Hct 28.2 L (37.0-47.0) % MCV 89.8 (81.0-99.0) fL MCH 29.9 (27.0-31.0) pg MCHC 33.3 (32.0-36.0) g/dL RDW 13.7 (12.0-15.0) % Plt Count 254 (130-450) 10^3/uL MPV 10.5 (7.9-10.8) fL Cord ABG pH 7.266 Cord ABG pCO2 60.0 Cord ABG pO2 Cord ABG HCO3 26.7 Cord ABG Total CO2 28.5 Cord ABG Base Excess -1.4 Cord ABG O2 Sat Cord VBG pH 7.360 Cord VBG pCO2 39.3 Cord VBG pO2 22.3 Cord VBG HCO3 21.7 Cord VBG Total CO2 22.9 Cord VBG Base Excess -3.4 Cord VBG O2 Sat 49.6 Assessment/Plan - Problem List (1) Status post section Impression: 26-year-old G2, P2 postop day 1 status post primary section for malpresentation. Postop day 1- Pain controlled with medications. Mild anemia noted iron started. Vital signs stable. Meeting postop milestones. Anticipate discharge on postop day 2.
[2021-12-26] MEDS: IBUPROFEN 600 MG TABLET PO SCH (21:37)
[2021-12-27] MEDS: ACETAMINOPHEN 500 MG TABLET PO SCH ×3 (01:37→10:07)
[2021-12-27] MEDS: oxyCODONE 5 MG TABLET PO PRN ×3 (01:38→10:06)
[2021-12-27] MEDS: IBUPROFEN 600 MG TABLET PO SCH ×4 (06:01→12:25)
[2021-12-27] MEDS: KETOROLAC 30 MG/ML VIAL IVP SCH (07:33)
--- NOTE | 2021-12-27 10:05 | Discharge Plan ---
Discharge Plan Problem Reviewed?: Yes Disposition: Home, Self Care Condition: Stable Prescriptions: oxyCODONE [Roxicodone] 5 mg PO Q4HR PRN #20 tablet PRN Reason: Severe Pain 6 -10 Ibuprofen [Motrin] 600 mg PO Q6HR PRN #30 tablet PRN Reason: Abdominal Pain Docusate Sodium 100Mg Capsule [Colace 100Mg Capsule] 100 mg PO BID PRN #30 tab PRN Reason: Constipation Ferrous Sulfate [Feosol] 325 mg PO DAILYWM #30 tablet Diet: Regular Activity Restrictions: No Restrictions Shower Restrictions: No Driving Restrictions: Yes (While taking narcotics ) Instruction Topics: Additional Instructions or Follow Up instructions: Follow-up in 1 week for check. Return to ED for headaches vision changes or abdominal pain. Return to ED for systolic blood pressures of 150 or higher or diastolic blood pressures of 100 or higher. Clean incision with soap and water and keep dry. Call clinic for increased pain incisional bleeding or purulent drainage. No Smoking: If you smoke, Please STOP! Call for help. Follow-up with: Juan Milner MD [Provider Admit Priv/Credential] -
[2021-12-27] MEDS: DOCUSATE SODIUM 100 MG CAPSULE PO SCH (10:06)
--- NOTE | 2021-12-27 11:45 | DISCHARGE SUMMARY ---
Discharge Summary Admit Date: 12/27/21 Discharge Date: 12/27/21 Discharging Provider: Megha Monge MD Condition at Discharge: Stable Discharge Disposition: 01 Home, Self Care Discharge Facility [facility]: [facility] - DIAGNOSES Admission Diagnoses: 39 weeks gestation Gestational Hypertension Discharge Diagnoses with Status of Each Condition: sectionstable - HOSPITAL COURSE Hospital Course: 26-year-old postop day 2 status post primary section. The patient was admitted at 39 weeks for induction of labor by the alkylation operator Sherin Boykin secondary to gestational hypertension. Following misoprostol for cervical ripening and Hilliard bulb the patient was found to have malpresentation with transverse presentation. She underwent an uncomplicated primary section. She met postoperative milestones and was stable for discharge on postop day 2. She was given instructions to return to the emergency department for heavy vaginal bleeding, incisional drainage or elevated blood pressures. - ALLERGIES Allergies/Adverse Reactions: Allergies Allergy/AdvReac Type Severity Reaction Status Date / Time pineapple Allergy Edema Verified 07/01/20 15:52 - MEDICATIONS Home Medications: Ambulatory Orders Medication Instructions Recorded Confirmed Docusate Sodium 100Mg Capsule 100 mg PO BID PRN #30 tab 12/27/21 [Colace 100Mg Capsule] Ferrous Sulfate [Feosol] 325 mg PO DAILYWM #30 tablet 12/27/21 Ibuprofen [Motrin] 600 mg PO Q6HR PRN #30 tablet 12/27/21 oxyCODONE [Roxicodone] 5 mg PO Q4HR PRN #20 tablet 12/27/21 - PHYSICAL EXAM AT DISCHARGE General Appearance: positive: No acute distress Respiratory: positive: No respiratory distress Abdomen: positive: Non-tender, Other (bandage in place ). negative: Guarding - LABS Result Diagrams: 12/26/21 05:12 12/25/21 08:55 - FOLLOW UP Follow Up: Follow-up in 1 week for incisional check and blood pressure check.
[2021-12-27 15:14] VITALS: BP 132/78
--- NOTE | 2021-12-27 16:04 | Labor Flowsheet ---
Labor Flowsheet Datetime Report Generated by CPN: 12/27/2021 16:03 Datetime: 12/27/2021 12:49 VITAL SIGNS NBP Sys/Sofiya/Mean (mmHg): 132 : 78 : 89 Pulse: 79 Datetime: 12/26/2021 00:04 SpO2 (%): 98 Datetime: 12/25/2021 22:38 Stage of : Datetime: 12/25/2021 20:15 Patient Care Comments: FHT in OR: 150 Datetime: 12/25/2021 20:05 Communication Comments: C/S consent signed with Dr. Amagwula Datetime: 12/25/2021 20:01 UTERINE ACTIVITY Monitor Mode: External Contraction Comments: Difficulty tracing ctx ASSESSMENT A Monitor Mode: Telemetry FHR Baseline Rate : 135 Variability: Moderate 6-25 bpm Accelerations: 15X15 Decelerations: None Category: Category I Datetime: 12/25/2021 19:55 COMMUNICATION Communication: Provider at Bedside Datetime: 12/25/2021 19:52 PROCEDURE TIME OUT Procedure Verify: Agreement on Procedure to be Done Datetime: 12/25/2021 19:30 Frequency (min): 0 Duration (sec): 0 FHR Baseline Changes: No Baseline Change Datetime: 12/25/2021 19:06 Vaginal Exam Comments: Bedside ultrasound performed by Sherin Boykin CNM, ARNP. Fetus found to be br eech. IOL d/c'd. Provider to give further instructions regarding . Datetime: 12/25/2021 19:02 VAGINAL EXAM Dilatation (cm): 5.0 Exam by: Sherin Boykin CNM, [employer] Datetime: 12/25/2021 19:00 Patient Position/Activity: Walking Datetime: 12/25/2021 18:30 LaborFlag: Labor Datetime: 12/25/2021 17:41 Monitor Interventions for UA: Ramos Adjusted Datetime: 12/25/2021 17:30 Quality: Mild Resting Tone (Palpate): Relaxed Datetime: 12/25/2021 16:29 Pattern: Normal: <= 5 Contractions in 10 Minutes Datetime: 12/25/2021 16:25 Monitor Interventions for FHR: Ultrasound Adjusted Datetime: 12/25/2021 15:54 Temperature (C): 37.0 Temperature Route: Oral Datetime: 12/25/2021 15:00 PATIENT CARE Oxygen Method: Room Air I/O Interventions: Up to BR Datetime: 12/25/2021 14:46 Cervical Ripening Agents: Hilliard Balloon; Cytotec @ Datetime: 12/25/2021 14:30 PAIN Pain Scale: 2 Pain Presence: Intermittent Pain Type: Cramping Pain Coping: Talking Through Contractions Pain Assessment Comments: Lower abdomen; cramping and occasional tightening Medication Comments: Hilliard balloon still in place Comfort Measures: Breathing/Relaxation Datetime: 12/25/2021 12:29 Comments: Unable to trace heart rate due to movement/maternal movement. Able to hear fe isael heart rate at times. Datetime: 12/25/2021 11:58 Pain Location: Abdomen Datetime: 12/25/2021 11:25 Respirations: 16 Datetime: 12/25/2021 10:56 Provider Notified (Name): Sherin Ashutosh, CNM, [employer] Datetime: 12/25/2021 10:27 MEDICATIONS Analgesics/Sedatives: Fentanyl (mcg) @ 50 Datetime: 12/25/2021 09:46 Station: -3 Cervix, Consistency: Moderate Cervix, Position: Posterior
--- NOTE | 2021-12-29 06:51 | PROVIDER PROGRESS NOTE ---
Subjective - Subjective Subjective: I assisted the OB fire prevention captain in the section for this patient. My responsibilities included retracting and suctioning, providing fundal pressure during delivery and following with suture during closure. Please see the OB's note for details of the surgery. Objective - Vital Signs/Intake & Output Intake & Output: Intake & Output 12/26/21 12/27/21 12/28/21 12/29/21 23:59 23:59 23:59 23:59 Intake Total 2250 300 Output Total 2560 Balance -310 300 - Lab Results Fish Bones: 12/26/21 05:12 12/25/21 08:55
== END 2021-12-27 13:10 | disposition home or self-care (01) | DRG 788 ==
LOC: WFO 08:07 → FBP 08:09 → WFO 09:22 → FBP 09:23 → OBSVTOIN 23:53
PROVIDERS: ADMIT Nurse Practitioner Obstetrics & Gynecology; ATTEND Obstetrics & Gynecology
PROC: 10D00Z1 Extraction of Products of Conception, Low, Open Approach (ICD-10-PCS; principal; 2021-12-25 20:00)
DX: O13.4 Gestational [pregnancy-induced] hypertension without significant proteinuria, complicating childbirth (principal); O32.2XX0 Maternal care for transverse and oblique lie, not applicable or unspecified; Z3A.39 39 weeks gestation of pregnancy; Z37.0 Single live birth; O90.81 Anemia of the puerperium; O99.214 Obesity complicating childbirth; E66.01 Morbid (severe) obesity due to excess calories
CPT/HCPCS: 36415; 80053; 82803; 85025; 85027; 86850; 86900; 86901; 96374; A9270; G0378; J1200; J2274; J2300; J7120; 59025

== ENCOUNTER 2022-01-11 08:00 | Outpatient (CLI) | payer OTHER ==
[2022-01-11 17:41] LABS: BILIRUBIN,URINE NEGATIVE (NEGATIVE); GLUCOSE, URINE (UA) NEGATIVE (NEGATIVE); KETONES,URINE (UA) NEGATIVE (NEGATIVE); LEUKOCYTE ESTERASE, URINE MODERATE (NEGATIVE); NITRITE,URINE POSITIVE (NEGATIVE); OCCULT BLOOD,URINE NEGATIVE (NEGATIVE); PH,URINE 6.5 PH (5.0-7.5); PROTEIN,URINE NEGATIVE (NEGATIVE); UROBILINOGEN,URINE 0.2 (NORMAL) E.U./dL (NORMAL)
[2022-01-11 17:45] LABS: CLARITY,URINE SL. CLOUDY (CLEAR)
[2022-01-11 20:53] LABS: BACTERIA,URINE Many /HPF (None Seen); RBC,URINE None Seen /HPF (0-5); SQUAMOUS EPITHELIAL CELL,UR FEW Squamous (<= Few)
== END 2022-01-11 23:59 | disposition home or self-care (01) ==
LOC: LAB 08:00
PROVIDERS: ATTEND Obstetrics & Gynecology
DX: R30.0 Dysuria (principal)
CPT/HCPCS: 81001; 87086; 87181

== ENCOUNTER 2022-02-20 10:45 | Outpatient (CLI) | payer OTHER | END 2022-02-20 10:46 | disposition home or self-care (01) | LOC: LAB.N 10:45 | PROVIDERS: ATTEND Nurse Practitioner Obstetrics & Gynecology | DX: R30.0 Dysuria (principal) | CPT/HCPCS: 87086; 87181 ==